=== PATIENT | male | born 1945 | race Caucasian/White ===

== ENCOUNTER 2025-02-10 14:06 | Outpatient (OUT) | payer MEDICARE, SELFPAY ==
--- OUTSIDE RECORDS SUMMARY | 2023-03-14 09:00 | XMS_ITS | Continuity of Care Document ---
Author Organization [facility] Address [address] [place] [address] Phone Care Team Providers Care Stock Order Lister Name Role Phone Randee LOMBARDI Binu Unavailable Unavailable Procedures Procedure Date COVID-19 Antigen Test COVID-19 Antigen Test Admin influenza virus vac FLU VACC PRSV FREE INC ANTIG Advance Directives Directive Yes / No Effective Date File Name No Information Encounters Encounter Description Practice Location Reason(s) For Visit Diagnoses Date Provider Providers Copied on Encounter [facility], [address], [place], [id number], [place] tel:[phone] COVID [facility] Rapid COVID (chief complaint) Encounter for screening for COVID-19 Randee MICHELLE Binu. [address], [place], [id number], [place]. tel:[phone] [facility], [address] [place] [address], [id number], tel:[phone] [facility] No Information Randee Binu. [address], [place], [id number], [place]. tel:[phone] Family History Family Member Type Diagnosis Age At Onset No Information Immunizations Vaccine Date Status Comments Flu (High Dose) administered Note: vis gi concepcion ; Source: New Immunization Record Payers Payer name Insurance type Covered constitution party ID Authoriza tion(s) Medicare PPS MB [id number] Social History Type Description Quantity Date Captured Comments Alcohol Use Details Unknown Caffeine Use Details Unknown Tobacco Use Status No Information Smoking Status No Information Sex Male Sexual Orientation Straight or heterosexual Gender Identity Male Chief Complaint And Reason For Visit From encounter dated '03/14/2023 13:00'. Rapid COVID (chief complaint). Description: Patient presents for rapid COVID antigen test. Denies any other concerns.//Kayden PINEDA. Reason For Referral Reason For Referral No Information Plan Of Treatment Date Type Action Status Goal Tdap Vaccine. Due on 2022 due Goal Hepatitis C screening. Due o n due Goal Depression screening. Due on due Goal Influenza vaccine. Due on No due Goal Zoster vaccine (). Due on due Goal PRAPARE ASSESSMENT. Due on N due Goal Tdap. Due on due Goal Unhealthy drug use screening . Due on due History Of Present Illness Encounter Date Complaint History Of Prese nt Illness Rapid COVID Patient presents for rapid COVID antigen test. Denies any other concerns.//Kayden PINEDA. Functional Status Date Functional Assessmen t No Information Instructions Date Instruction Additional Infor mation No Information Assessments Type Assessment Date assessment Encounter for screening for COVI D- Patient Care Teams Name Effective Dates (start - stop) Status Members No Information
--- OUTSIDE RECORDS SUMMARY | 2025-01-27 10:06 | XMS_ITS | Encounter Summary ---
Author Organization [facility] Address [address] [place] [id number] Care Team Providers Care Coat Agent Name Role Phone Binu Gallegos MD Primary Care Provider + Nicole Cano APRN.NATURE PHOTOGRAPHER Unavailable Source Comments In the event this information is protected by the Federal Confidentiality of Alcohol and Drug AbusePatient Records regulations: The Federal rules restrict any use of the information to criminally investigate or prosecute any alcohol or drug abuse patient.[facility] Reason for Referral * MRI/CT (Routine) - Closed Specialty Diagnoses / Procedures Referred By Contac t Referred To Contact CT IMAGING Diagnoses Localized enlarged lymph nodes Procedures CT ABD/PEL W IVCON CT ABD & PELVIS W/CONTRAST Nicole Cano APRN.NATURE PHOTOGRAPHER [address] [place] [address] [place] [address] Phone: tel: fax: [place] [phone] Referral ID Status Reason Start Date Expiration Date V isits Requested Visits Authorized [id number] Closed Auto-Generate d Referral 01/03/2025 02/02/2026 1 1 * MRI/CT (Routine) - Closed Specialty Diagnoses / Procedures Referred By Contac t Referred To Contact CT IMAGING Diagnoses Localized enlarged lymph nodes Procedures CT CHEST W IVCON DIAGNOSTIC COMPUTED TOMOGRAPHY THORAX W/CONTRAST Nicole Cano, RUDY.THANIA [address] [place] [address] Phone: tel: fax: [place] [phone] Referral ID Status Reason Start Date Expiration Date V isits Requested Visits Authorized [id number] Closed Auto-Generate d Referral 01/03/2025 02/02/2026 1 1 Reason for Visit * Reason Comments Radiology CT * MRI/CT (Routine) - Closed Specialty Diagnoses / Procedures Referred By Contac t Referred To Contact CT IMAGING Diagnoses Localized enlarged lymph nodes Procedures CT CHEST W IVCON DIAGNOSTIC COMPUTED TOMOGRAPHY THORAX W/CONTRAST Nicole Cano, RUDY.NATURE PHOTOGRAPHER [address] [place] [address] Phone: tel: fax: [place] [phone] Referral ID Status Reason Start Date Expiration Date V isits Requested Visits Authorized [id number] Closed Auto-Generate d Referral 01/03/2025 02/02/2026 1 1 Encounter Details Date Type Department Care Team (Latest Contact Info) Description 01/27/2025 10:06 AM EDT - 01/27/2025 11:59 PM EDT Hospital Encounter Radiology Pet CT [address] [place] [address] Localized enlarged lymph nodes [R59.0] Discharge Disposition: Home Social History Tobacco Use Types Packs/Day Years Used Date Smoking Tobacco: Former Cigarettes 0 11/09/1974 - 11/09/1982 Passive Smoke Exposure: Past Smokeless Tobacco: Never Alcohol Use Standard Drinks/Week Comments Not Currently 0 (1 standard drink = 0.6 oz pur e alcohol) Twice a year; maybe one beer PHQ-2 Answer Date Recorded PHQ-2 score 0 06/15/2024 Area Deprivation Index Answer Date Randy rded National Score (1-100), lower number is lower ri 83 11/14/2022 State Score (1-10), lower number is lower risk 7 11/14/2022 Data from: https://www.neighborhoodatlas.[facility].edu/. Last address used for calculation [address] 11/14/2022 Sex and Gender Information Value Date Recorded Sex Assigned at Not on file Legal Sex Male 10:12 AM EST Gender Identity Not on file Sexual Orientation Not on file documented as of this encounter Functional Status * Are you deaf or do you have serious difficulty hearing? Answer Date of Assessment Author No 05/11/2014 10:07 AM Ra christen Cloud * Are you blind or do you have serious difficulty seeing, even when wearing glasses? Answer Date of Assessment Author No 05/11/2014 10:07 AM Ra christen Cloud * Do you have serious difficulty walking or climbing stairs? Answer Date of Assessment Author No 05/11/2014 10:07 AM Ra christen Cloud * Do you have difficulty dressing or bathing? Answer Date of Assessment Author No 05/11/2014 10:07 AM Ra christen Cloud * Because of a physical, mental, or emotional condition, do you have difficulty doing errands alone such as visiting a doctor's office or shopping? Answer Date of Assessment Author No 05/11/2014 10:07 AM Ra christen Cloud documented as of this encounter Mental Status * Because of a physical, mental, or emotional condition, do you have serious difficulty concentrating, remembering, or making decisions? Answer Entry Date Author No 05/11/2014 10:07 AM Ra christen Cloud documented in this encounter Medications at Time of Discharge potassium chloride ER (KLOR-CON) 20 mEq tablet Take 1 tablet by mouth once daily. 3 tablet 01/27/2025 multivit-min/ferr ous fumarate (MULTI VITAMIN ORAL) Take by mouth. cholecalciferol, vitamin D3, (VITAMIN D3 ORAL) Take by mouth. loperamide HCl (ANTI-DIARRHEA ORAL) Take by mouth. acetaminophen (TYLENOL) 325 mg tablet Take 2 tablets by mouth every 6 hours as needed for pain. 04/18/2021 diphenoxylate-atr opine (LOMOTIL) 2.5-0.025 mg per tabletIndications :Malignant neoplasm of anus (HCC) Take 1-2 tablets by mouth every 4 hours as needed for diarrhea 50 tablet 1 04/02/2021 aspirin 325 mg tablet Take 325 mg by mouth every 6 hours as needed. polyethylene glycol 3350 (MIRALAX, GLYCOLAX) 17 gram/dose powder Take by mouth as needed. simvastatin (ZOCOR) 10 mg tablet Take 10 mg by mouth daily at bedtime. documented as of this encounter Progress Notes * Altagracia Mark RN - 01/27/2025 10:15 AM EDT Radiology Service Progress Note DATE OF SERVICE: January 27, 2025 TIME: 10:18 AM PATIENT WEIGHT: 138LBS PATIENT IDENTITY VERIFICATION COMPLETED USING TWO (2) STANDARD IDENTIFIERS: Name and Date of confirmed by patient verbally. FALL SCREENING: Has the patient had 2 falls in the last year or 1 fall with injury or currently using an Ambulatory Assistive Device (Walker, Cane, Wheelchair, Crutches, etc.)? No PATIENT GENDER DATA: Assigned male at ALLERGIES: Reviewed and unchanged CONTRAST ALLERGY: No EXAM: CT -CONTRAST INDUCED NEPHROPATHY RISK FACTORS: Patient age > 60 years CREATININE: Creatinine Date Value Ref Range Status 07/08/2024 0.85 0.73 - 1.22 mg/dL Final 05/31/2024 0.85 0.73 - 1.22 mg/dL Final 01/12/2024 0.97 0.73 - 1.22 mg/dL Final Estimated Glomerular Filtration Rate Date Value Ref Range Status 07/08/2024 88 >=60 mL/min/1.73m Final Comment: Estimated Glomerular Filtration Rate (eGFR) is calculated using the 2020 CKD-EPI creatinine equation. This equation utilizes serum creatinine, sex, and age as parameters. The creatinine assay has traceable calibration to isotope dilution- mass spectrometry. Refer to KDIGO guidelines for clinical interpretation. In patients with unstable renal function, e.g. those with acute kidney injury, the eGFRmay not accurately reflect actual GFR. eGFR- Date Value Ref Range Status 05/09/2021 >60 Final P.O.C.T. RESULTS: Outside Creatinine: 1.29 mg/dl, Calculated GFR 56 ml/min, Date 01/21/25 TREATMENT: No Hydration needed. IV SITE: Ambulatory: A peripheral IV was started in the Left forearm with a Angio cath: 20 gauge. IV SITE APPEARANCE: Clean,Dry and Intact SIGNATURE: Altagracia Mark RN PATIENT NAME: Jean Pierre Verma JR DATE: January 27, 2025 TIME: 10:18 AM * Prachi Sainz RT(R) - 01/27/2025 10:15 AM EDT Radiology Service Progress Note PATIENT NAME: Jean Pierre Verma JR DATE OF SERVICE: January 27, 2025 TIME: 10:39 AM PATIENT IDENTITY VERIFICATION COMPLETED USING TWO (2) IDENTIFIERS: Name and Date of confirmedby patient verbally. FALL SCREENING: Has the patient had 2 falls in the last year or 1 fall with injury or currently using an Ambulatory Assistive Device (Walker, Cane, Wheelchair, Crutches, etc.)? No PATIENT GENDER DATA: Assigned male at PATIENT RELEVANT IMPLANT DATA REVIEWED: Not Applicable PATIENT PRESENTS WITH AN IMPLANTABLE OR ATTACHED DIGITAL HARDWARE DESIGN ENGINEER: No RADIOLOGY DEPARTMENT: CT; Exam(s) Completed: Chest Abdomen Pelvis. Anesthesia: No PERIPHERAL IV DATA: Site assessment: Clean,Dry and Intact, Site disposition Discontinued SIGNED BY: RT Nicky(R) January 27, 2025 10:39 AM documented in this encounter Plan of Treatment Not on file documented as of this encounter Procedures Procedure Name Priority Date/Time Associated Diagnosis Comments CT ABD/PEL W IVCON Routine 01/27/2025 10 :58 AM EDT Localized enlarged lymph nodes CT CHEST W IVCON Routine 01/27/2025 10:5 8 AM EDT Localized enlarged lymph nodes COMPREHENSIVE METABOLIC PANEL Routine 01/27/2025 10:08 AM EDT Localized enlarged lymph nodes CBC + DIFF Routine 01/27/2025 10:08 AM EDT Localized enlarged lymph nodes documented in this encounter Results * CT ABD/PEL W IVCON (01/27/2025 10:58 AM EDT) Anatomical Region Laterality Modality Abdomen Nuclear Medicine , Nuclear Medicine 01/27/2025 10:5 8 AM EDT Impressions 01/27/2025 6:02 PM EDT IMPRESSION: 1. Interval increase in size of multiple retroperitoneal lymph nodes. 2. Stable thickening of the anal canal which may be due to known neoplasm versus underdistention. Transcribe Date/Time: Jan 27 2025 5:52P Dictated by: AYESHA WAGNER MD This examination was interpreted and the report reviewed and electronically signed by: AYESHA WAGNER MD on Jan 27 2025 6:00PM EST Thank you for allowing us to participate in the care of your patient. Should there be any questions regarding this interpretation, please call [phone]. If you are unable to reach us at the number above, please feel free to contact [facility] at [phone]. Narrative 01/27/2025 6:02 PM EDT * * *Final Report* * * DATE OF EXAM: Jan 27 2025 10:58AM [facility] 0530 - CT ABD/PEL W IVCON / PROCEDURE REASON: Localized enlarged lymph nodes * * * * Physician Interpretation * * * * RESULT: EXAMINATION: CT ABDOMEN AND PELVIS WITH IV CONTRAST CLINICAL HISTORY: History of anal cancer. TECHNIQUE: CT of the abdomen and pelvis was performed using standard technique, scanning from just above the dome of the diaphragm to the symphysis pubis. MQ: CTAP_3 Contrast: IV: 100 ml of Omnipaque 350 Oral: 500 ml of Omni 240 10-25ml diluted with water CT Radiation dose: Integrated Dose-length product (DLP) for this visit = 675 mGy*cm. CT Dose Reduction Employed: Automated exposure control (AEC) COMPARISON: CT performed 05/31/2024. PET/CT performed 06/30/2024 RESULT: Liver: No mass. Biliary: There is cholelithiasis without evidence of acute cholecystitis. No biliary ductal dilation is seen. Spleen: No mass. No splenomegaly. Pancreas: No mass or duct dilation. Adrenals: No mass. Kidneys: No mass, calculus or hydronephrosis. GI tract: The stomach is unremarkable. The small bowel is unremarkable without evidence of obstruction or wall thickening. The colon is unremarkable. Mild thickening is noted in the anal canal which may be due to underdistention or known neoplasm. Lymph nodes: Multiple enlarged retroperitoneal nodes are again visualized. These include the following: Retrocaval (3:45) 2.9 x 2.3 cm, previously 2.2 x 1.8 cm. This node encases and compresses the IVC Retrocaval (3:47) 3.1 x 1.3 cm, previously 2.1 x 1.3 cm Left para-aortic (3:56) 3.6 x 1.6 cm, previously 2.8 x 1.6 cm Left para-aortic (3:66) 2.8 x 1.5 cm, previously 2.4 x 1.3 cm Paracaval (3:70) 2.8 x 2.1 cm, previously 2.7 x 1.9 cm Mesentery/Peritoneum: No ascites or mass. Retroperitoneum: No mass. Vasculature: - Abdominal aorta and iliac arteries: Atherosclerotic calcifications without aneurysm. - Celiac and SMA: Patent without stenosis. - Portal venous system (SMV, splenic vein, portal vein and branches): Patent. - Hepatic veins: Patent. Pelvis: No pelvic mass or fluid collection is seen. The urinary bladder is unremarkable. Bones/Soft Tissues: Degenerative changes. Lower thorax: A chest CT performed will be reported separately. Localizer images: No additional findings. Procedure Note Provider, [facility] - 01/27/2025 * * *Final Report* * * DATE OF EXAM: Jan 27 2025 10:58AM [facility] 0530 - CT ABD/PEL W IVCON / PROCEDURE REASON: Localized enlarged lymph nodes * * * * Physician Interpretation * * * * RESULT: EXAMINATION: CT ABDOMEN AND PELVIS WITH IV CONTRAST CLINICAL HISTORY: History of anal cancer. TECHNIQUE: CT of the abdomen and pelvis was performed using standard technique, scanning from just above the dome of the diaphragm to the symphysis pubis. MQ: CTAP_3 Contrast: IV: 100 ml of Omnipaque 350 Oral: 500 ml of Omni 240 10-25ml diluted with water CT Radiation dose: Integrated Dose-length product (DLP) for this visit = 675 mGy*cm. CT Dose Reduction Employed: Automated exposure control (AEC) COMPARISON: CT performed 05/31/2024. PET/CT performed 06/30/2024 RESULT: Liver: No mass. Biliary: There is cholelithiasis without evidence of acute cholecystitis. No biliary ductal dilation is seen. Spleen: No mass. No splenomegaly. Pancreas: No mass or duct dilation. Adrenals: No mass. Kidneys: No mass, calculus or hydronephrosis. GI tract: The stomach is unremarkable. The small bowel is unremarkable without evidence of obstruction or wall thickening. The colon is unremarkable. Mild thickening is noted in the anal canal which may be due to underdistention or known neoplasm. Lymph nodes: Multiple enlarged retroperitoneal nodes are again visualized. These include the following: Retrocaval (3:45) 2.9 x 2.3 cm, previously 2.2 x 1.8 cm. This node encases and compresses the IVC Retrocaval (3:47) 3.1 x 1.3 cm, previously 2.1 x 1.3 cm Left para-aortic (3:56) 3.6 x 1.6 cm, previously 2.8 x 1.6 cm Left para-aortic (3:66) 2.8 x 1.5 cm, previously 2.4 x 1.3 cm Paracaval (3:70) 2.8 x 2.1 cm, previously 2.7 x 1.9 cm Mesentery/Peritoneum: No ascites or mass. Retroperitoneum: No mass. Vasculature: - Abdominal aorta and iliac arteries: Atherosclerotic calcifications without aneurysm. - Celiac and SMA: Patent without stenosis. - Portal venous system (SMV, splenic vein, portal vein and branches): Patent. - Hepatic veins: Patent. Pelvis: No pelvic mass or fluid collection is seen. The urinary bladder is unremarkable. Bones/Soft Tissues: Degenerative changes. Lower thorax: A chest CT performed will be reported separately. Localizer images: No additional findings. IMPRESSION IMPRESSION: 1. Interval increase in size of multiple retroperitoneal lymph nodes. 2. Stable thickening of the anal canal which may be due to known neoplasm versus underdistention. Transcribe Date/Time: Jan 27 2025 5:52P Dictated by: AYESHA WAGNER MD This examination was interpreted and the report reviewed and electronically signed by: AYESHA WAGNER MD on Jan 27 2025 6:00PM EST Thank you for allowing us to participate in the care of your patient. Should there be any questions regarding this interpretation, please call [phone]. If you are unable to reach us at the number above, please feel free to contact [facility] at [phone]. us Nicole Jerome GRANT.NATURE PHOTOGRAPHER CT-PAMA Final Re sult * CT CHEST W IVCON (01/27/2025 10:58 AM EDT) Anatomical Region Laterality Modality Chest Nuclear Medicine , Nuclear Medicine 01/27/2025 10:5 8 AM EDT Impressions 01/27/2025 5:54 PM EDT IMPRESSION: 1. Subtle CT of the chest. Unchanged appearance of bilateral pulmonary nodules. No new nodules are seen. 2. Stable mildly prominent right paratracheal nodes. No new bulky intrathoracic adenopathy. Transcribe Date/Time: Jan 27 2025 5:34P Dictated by: AYESHA WAGNER MD This examination was interpreted and the report reviewed and electronically signed by: AYESHA WAGNER MD on Jan 27 2025 5:52PM EST Thank you for allowing us to participate in the care of your patient. Should there be any questions regarding this interpretation, please call [phone]. If you are unable to reach us at the number above, please feel free to contact [facility] at [phone]. Narrative 01/27/2025 5:54 PM EDT * * *Final Report* * * DATE OF EXAM: Jan 27 2025 10:58AM [facility] 0539 - CT CHEST W IVCON / PROCEDURE REASON: Localized enlarged lymph nodes * * * * Physician Interpretation * * * * RESULT: EXAMINATION: CHEST CT WITH CONTRAST CLINICAL HISTORY: History of anal cancer. Technique: Spiral CT acquisition of the chest from the thoracic inlet to the upper abdomen following IV contrast. MQ: CTCW_6 Contrast: 100 mL Omnipaque [address] Radiation dose: Integrated Dose-length product (DLP) for this visit = 675 mGy*cm CT Dose Reduction Employed: Automated exposure control (AEC) Comparison: CT chest performed 05/31/2024. RESULT: Limitations: None. Lines, tubes, and devices: None. Lung parenchyma and airways: No lobar consolidation is seen. Right basal atelectasis versus subpleural scarring is noted. Bilateral nodular opacities are again noted. These include the following: Right lower lobe (4:118) 4 mm, stable Right lower lobe (4:135) 3 mm, stable Right lower lobe (4:144) 3 mm, stable Left upper lobe (4:28) 3 mm, stable Left lower lobe (4:42) 3 mm, stable No new or enlarging nodules are seen. The central airways are widely patent. Pleural space: No pleural effusion. No pleural thickening. Lower neck, lymph nodes, and mediastinum: Right paratracheal mediastinal nodes are seen measuring up to 1.1 cm, similar to prior exam. No new bulky intrathoracic adenopathy is seen. Heart, pericardium, and thoracic vessels: The thoracic aorta and main pulmonary artery are normal in caliber. The cardiac chambers are normal in size. Coronary artery appears chronic calcification is noted. No pericardial effusion or thickening. Bones and soft tissues: Degenerative changes are seen in the thoracic spine. Superficial soft tissues are unremarkable. Upper abdomen: A dedicated CT of the abdomen and pelvis was performed concurrently and is reported separately. Localizer images: No additional findings. Procedure Note Provider, [facility] - 01/27/2025 * * *Final Report* * * DATE OF EXAM: Jan 27 2025 10:58AM [facility] 0539 - CT CHEST W IVCON / PROCEDURE REASON: Localized enlarged lymph nodes * * * * Physician Interpretation * * * * RESULT: EXAMINATION: CHEST CT WITH CONTRAST CLINICAL HISTORY: History of anal cancer. Technique: Spiral CT acquisition of the chest from the thoracic inlet to the upper abdomen following IV contrast. MQ: CTCW_6 Contrast: 100 mL Omnipaque [address] Radiation dose: Integrated Dose-length product (DLP) for this visit = 675 mGy*cm CT Dose Reduction Employed: Automated exposure control (AEC) Comparison: CT chest performed 05/31/2024. RESULT: Limitations: None. Lines, tubes, and devices: None. Lung parenchyma and airways: No lobar consolidation is seen. Right basal atelectasis versus subpleural scarring is noted. Bilateral nodular opacities are again noted. These include the following: Right lower lobe (4:118) 4 mm, stable Right lower lobe (4:135) 3 mm, stable Right lower lobe (4:144) 3 mm, stable Left upper lobe (4:28) 3 mm, stable Left lower lobe (4:42) 3 mm, stable No new or enlarging nodules are seen. The central airways are widely patent. Pleural space: No pleural effusion. No pleural thickening. Lower neck, lymph nodes, and mediastinum: Right paratracheal mediastinal nodes are seen measuring up to 1.1 cm, similar to prior exam. No new bulky intrathoracic adenopathy is seen. Heart, pericardium, and thoracic vessels: The thoracic aorta and main pulmonary artery are normal in caliber. The cardiac chambers are normal in size. Coronary artery appears chronic calcification is noted. No pericardial effusion or thickening. Bones and soft tissues: Degenerative changes are seen in the thoracic spine. Superficial soft tissues are unremarkable. Upper abdomen: A dedicated CT of the abdomen and pelvis was performed concurrently and is reported separately. Localizer images: No additional findings. IMPRESSION IMPRESSION: 1. Subtle CT of the chest. Unchanged appearance of bilateral pulmonary nodules. No new nodules are seen. 2. Stable mildly prominent right paratracheal nodes. No new bulky intrathoracic adenopathy. Transcribe Date/Time: Jan 27 2025 5:34P Dictated by: AYESHA WAGNER MD This examination was interpreted and the report reviewed and electronically signed by: AYESHA WAGNER MD on Jan 27 2025 5:52PM EST Thank you for allowing us to participate in the care of your patient. Should there be any questions regarding this interpretation, please call [phone]. If you are unable to reach us at the number above, please feel free to contact [facility] at [phone]. us Nicole Cano LOCATOR.NATURE PHOTOGRAPHER CT-PAMA Final Re sult * (ABNORMAL) COMPREHENSIVE METABOLIC PANEL (01/27/2025 10:08 AM EDT) Protein, Total 7.2 6.3 - 8.0 g/dL 01/27/2025 11:42 AM EDT [facility] Albumin 4.6 3.9 - 4.9 g/dL 01/27/2025 11:42 AM [facility] Calcium, Total 9.9 8.5 - 10.2 mg/dL 01/27/2025 11:42 AM [facility] Bilirubin, Total 0.3 0.2 - 1.3 mg/dL 01/27/2025 11:42 AM [facility] Alkaline Phosphatase 105 38 - 113 U/L 01/27/2025 11:42 AM [facility] AST 20 14 - 40 U/L 01/27/2025 11:42 AM [facility] ALT 13 10 - 54 U/L 01/27/2025 11:42 AM [facility] Glucose 128(H) 74 - 99 mg/dL 01/27/2025 11:42 AM [facility] Comment: The [place] [employer] (ADA) provides guidance for cutoff values for fasting glucose and random glucose. The ADA defines fasting as no caloric intake for at least 8 hours. Fasting plasma glucose results between 100 to 125 mg/dL indicate increased risk for diabetes (prediabetes). Fasting plasma glucose results greater than or equal to 126 mg/dL meet the criteria for diagnosis of diabetes. In the absence of unequivocal hyperglycemia, results should be confirmed by repeat testing. In a patient with classic symptoms of hyperglycemia or hyperglycemic crisis, random plasma glucose results greater than or equal to 200 mg/dL meet the criteria for diagnosis of diabetes. Reference: Standards of Medical Care in Diabetes 2016, [place] [employer]. Diabetes Care. 2016.39(Suppl 1). BUN 16 9 - 24 mg/dL 01/27/2025 11:42 AM [facility] Creatinine 1.13 0.73 - 1.22 mg/dL 01/27/2025 11:42 AM [facility] Sodium 142 136 - 144 mmol/L 01/27/2025 11:42 AM [facility] Potassium 3.3(L) 3.7 - 5.1 mmol/L 01/27/2025 11:42 AM [facility] Chloride 103 98 - 107 mmol/L 01/27/2025 11:42 AM EDT [facility] CO2 25 22 - 30 mmol/L 01/27/2025 11:42 AM EDT [facility] Anion Gap 14 8 - 15 mmol/L 01/27/2025 11:42 AM EDT [facility] Estimated Glomerular Filtration Rate 66 >=60 mL/min/1. 73m 01/27/2025 11:42 AM EDT [facility] Comment:Estimated Glomerular Filtration Rate (eGFR) is calculated using the 2020 CKD-EPI creatinine equation. This equation utilizes serum creatinine, sex, and age as parameters. The creatinine assay has traceable calibration to isotope dilution- mass spectrometry. Refer to KDIGO guidelines for clinical interpretation. In patients with unstable renal function, e.g. those with acute kidney injury, the eGFR may not accurately reflect actual GFR. Blood BLOOD SPECIMEN / Unknown Venipuncture / Unknown 01/27/2025 10:08 AM EDT 01/27/2025 10:17 AM EDT us Nicole Cano LOCATOR.NATURE PHOTOGRAPHER LABORATORY Final Re sult [facility] [address] [place] [id number] * (ABNORMAL) COMPLETE BLOOD COUNT AND DIFFERENTIAL (01/27/2025 10:08 AM EDT) WBC 3.57(L) 3.70 - 11.00 k/uL 01/27/2025 10:22 AM EDT [facility] RBC 3.56(L) 4.20 - 6.00 m/uL 01/27/2025 10:22 AM EDT [facility] Hemoglobin 10.3(L) 13.0 - 17.0 g/dL 01/27/2025 10:22 AM EDT [facility] Hematocrit 32.3(L) 39.0 - 51.0 % 01/27/2025 10:22 AM EDT [facility] MCV 90.7 80.0 - 100.0 fL 01/27/2025 10:22 AM EDT [facility] MCH 28.9 26.0 - 34.0 pg 01/27/2025 10:22 AM EDT [facility] MCHC 31.9 30.5 - 36.0 g/dL 01/27/2025 10:22 AM EDT [facility] RDW-CV 16.3(H) 11.5 - 15.0 % 01/27/2025 10:22 AM EDT [facility] Platelet Count 127(L) 150 - 400 k/uL 01/27/2025 10:22 AM EDT [facility] MPV 10.0 9.0 - 12.7 fL 01/27/2025 10:22 AM EDT [facility] Neutrophils % 61.0 % 01/27/2025 10:22 AM EDT [facility] Abs Neut 2.18 1.45 - 7.50 k/uL 01/27/2025 10:22 AM EDT [facility] Lymphocytes % 24.1 % 01/27/2025 10:22 AM EDT [facility] Abs Lymph 0.86(L) 1.00 - 4.00 k/uL 01/27/2025 10:22 AM EDT [facility] Monocytes % 9.8 % 01/27/2025 10:22 AM EDT [facility] Abs [place] 0.35 <0.87 k/uL 01/27/2025 10:22 AM EDT [facility] Eosinophils % 3.9 % 01/27/2025 10:22 AM EDT [facility] Abs Eosin 0.14 <0.46 k/uL 01/27/2025 10:22 AM EDT [facility] Basophils % 0.6 % 01/27/2025 10:22 AM EDT [facility] Abs Baso <0.03 <0.11 k/uL 01/27/2025 10:22 AM EDT [facility] Immature Granulocytes % 0.6 % 01/27/2025 10:22 AM EDT [facility] Abs Immature Gran <0.03 <0.10 k/uL 01/27/2025 10:22 AM EDT [facility] NRBC 0.0 /100 WBC 01/27/2025 10:22 AM EDT [facility] Absolute nRBC <0.01 <0.01 k/uL 01/27/2025 10:22 AM EDT [facility] Diff Type Auto 01/27/2025 10:22 AM EDT [facility] Blood BLOOD SPECIMEN / Unknown Venipuncture / Unknown 01/27/2025 10:08 AM EDT 01/27/2025 10:17 AM EDT us Nicole Cano LOCATOR.[employer] LABORATORY Final Re sult [facility] [address] [place] [address] documented in this encounter Visit Diagnoses Diagnosis Localized enlarged lymph nodes Enlargement of lymph nodes documented in this encounter Care Teams 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
--- OUTSIDE RECORDS SUMMARY | 2025-02-01 09:00 | XMS_ITS | Encounter Summary ---
Author Organization [facility] Address [address] [place] [id number] Care Team Providers Care Civil Service Clerk Name Role Phone Binu Gallegos MD Primary Care Provider + Nicole Cano APRN.ACOUSTICS TEACHER Unavailable [phone] Source Comments In the event this information is protected by the Federal Confidentiality of Alcohol and Drug AbusePatient Records regulations: The Federal rules restrict any use of the information to criminally investigate or prosecute any alcohol or drug abuse patient.[facility] Reason for Referral * Outpatient Procedure (Routine) - New Request Specialty Diagnoses / Procedures Referred By Contac t Referred To Contact [facility] [place] Diagnoses Heart failure, unspecified HF chronicity, unspecified heart failure type (HCC) Edema of both legs Procedures ECHO ECHO TTHRC R-T 2D W/WOM-MODE COMPL SPEC&COLR D Jose Luis Adams MD [address] [place] [address] [place] [address] Phone: tel: fax: Heart and Vascular [address] [address] Referral ID Status Reason Start Date Expiration Date Visits Requested Visits Authorized [id number] New Request Auto-Generat ed Referral 02/01/2025 02/01/2026 1 1 Reason for Visit * Reason Comments Lymphadenopathy Transition Of Care Encounter Details Date Type Department Care Team (Latest Contact Info) Description 02/01/2025 9:00 AM EDT Visit (SP) Office Hematology/Oncology [address] [place] [address] [place] [address] Jose Luis Adams MD [address] [place] [address] [place] [address] History of lymphoma (Primary Dx); Lymphadenopathy; Heart failure, unspecified HF chronicity, unspecified heart failure type (HCC); Edema of both legs; Cancer of anal canal (HCC); Iron deficiency anemia due to chronic blood loss; Diffuse large B-cell lymphoma, unspecified body region (HCC); Anemia, unspecified type; Personal history of malignant neoplasm of rectum, rectosigmoid junction, and anus; Shortness of breath; Hypokalemia; 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 Last address used for calculation [address] [facility] 11/14/2022 Sex and Gender Information Value Date Recorded Sex Assigned at Not on file Legal Sex Male 10:12 AM EST Gender Identity Not on file Sexual Orientation Not on file documented as of this encounter Last Filed Vital Signs Vital Sign Reading Time Taken Comments Blood Pressure 124/80 02/01/2025 8:53 AM EDT Pulse 99 02/01/2025 8:53 AM EDT Temperature 36.6 C (97.9 F) 02/01/2025 8:53 AM EDT Respiratory Rate 16 02/01/2025 8:53 AM EDT Oxygen Saturation 100% 02/01/2025 8:53 AM EDT Inhaled Oxygen Concentration - - Weight 60.8 kg (134 lb 0.6 oz) 02/01/2025 8:53 A M EDT Height - - Body Mass Index 20.99 08/05/2024 10:05 AM EDT documented in this encounter Functional Status * Are you [...] Ra christen Cloud documented in this encounter Patient Instructions * Patient Instructions* Jose Luis Adams MD - 02/01/2025 9:43 AM EDT [place] [facility] Medrol-dose amarjit. RTC with me 1 week () labs same day. We discussed your history of lymphoma and current symptoms: - Your recent CT and PET scans show progressive retroperitoneal lymphadenopathy, with one lymph node compressing the inferior vena cava, which may be contributing to your leg swelling. - You reported swelling in your legs for the past six months, worse on the right side, and back pain that is constant and severe. You also mentioned shortness of breath with activity and weight loss of approximately 13-14 pounds since June 2024. - Your blood counts remain stable but show mild anemia, which may also contribute to your symptoms. We discussed your treatment plan: - I will prescribe a Medrol Dosepak (a short course of steroids) to see if it alleviates your back pain. This may help us determine if your symptoms are related to lymphoma. The prescription will be sent to your preferred pharmacy. - I recommend an echocardiogram to evaluate your heart function, as your shortness of breath and leg swelling could be related to heart issues. This will be scheduled at [facility], and they will contact you with the appointment details. - If the Medrol Dosepak improves your symptoms, we will reassess and determine the next steps. If not, we may need to pursue a biopsy of one of the lymph nodes to confirm a diagnosis. A pulmonologistmay be able to perform a bronchoscopy to access a lymph node in your chest. We discussed your current medications and care: - You are currently taking potassium supplements due to low potassium levels. Please continue as directed by Dr. Gallegos, and follow up with him to monitor your levels. - You mentioned wearing compression socks occasionally for leg swelling. I recommend wearing them more consistently, as they may help reduce the swelling. Follow-up plan: - Please take the Medrol Dosepak as prescribed and monitor your symptoms, particularly your back pain and leg swelling. - I would like to see you in one week to evaluate your response to the steroids and discuss the results of your echocardiogram if it has been completed. My office will work with you to schedule this follow-up visit. - If your symptoms worsen or you experience new concerning symptoms, such as significant shortness of breath while lying flat, chest pain, or worsening swelling, please contact our office or seek immediate medical attention. We will continue to monitor your condition closely and adjust the plan as needed. documented in this encounter Progress Notes * Jose Luis Adams MD - 02/01/2025 9:00 AM EDT Images from the original note were not included. NAME: Jean Pierre Verma NO.: [id number] DATE OF SERVICE: February 01, 2025 (Bryan) Referring Provider: DIPTI Additional Clinicians involved in Jean Pierre Verma JR's care: Dr. Binu Gallegos, Dr. Abhi Eugene, Dr. Ozuna, Dr. Ndiaye, Dr. Rendon, Dr. 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 The patient was diagnosed with stage IIIb DLBCL in 11/2004 and achieved complete response after 8 cycles of R-CHOP, completed in 04/2005. He has since been followed for intermittent lymphadenopathy with suspected benign follicular hyperplasia and chronic uptake on PET scans. 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 He has been disease-free since then. In 05/2024, CT scan showed progressive retroperitoneal lymphadenopathy, and PET scan in 06/2024 showed FDG uptake in multiple lymph node groups suspicious for recurrent lymphoma. Excisional biopsy of aleft axillary lymph node on 07/16/2024 showed benign follicular hyperplasia with no evidence of malignancy. Today, the patient reports bilateral lower extremity edema for approximately 6 months, worse on theright side, which fluctuates throughout the day and improves overnight. He has been using compression stockings intermittently and was recently advised by his PCP to use them more consistently. He was recently prescribed a diuretic by his PCP and is taking potassium supplements after a low potassium level was noted last week. He denies orthopnea. He also reports constant, severe back pain that disrupts his sleep and requires frequent use of a cane. He was evaluated by his PCP, Dr. Gallegos, who attributed the pain to arthritis, but the patient feels the pain is too severe to be explained by arthritis alone. He also reports exertional dyspnea with walking, requiring him to stop and rest. Since 06/2024, he has unintentionally lost 13-14 lbs and notes a decreased appetite. He denies nightsweats. I'm concerned that we are indeed looking at low grade lymphoma, but I am also concerned that getting tissue to confirm may be difficult. Will see if his edema is due to heart failure vs. Compression of the IVC. Trial of a medrol dose-amarjit to see if this alleviates back pain and re-evaluation next week for further work-up / recs. SUMMARIZED PLAN OF CARE: [facility] Medrol-dose amarjit. RTC with me 1 week () labs same day. AI Assisted A/P: 1. History of lymphoma (Z85.72) 2. Diffuse large B-cell lymphoma, unspecified body region (HCC) (C83.30) 3. Lymphadenopathy (R59.1) History of stage 3B DLBCL diagnosed in November 2004, treated with 8 cycles of R- CHOP, completed April 2005, with complete response. Since October 2019, has been followed for intermittent lymphadenopathy with suspected benign follicular hyperplasia. Imaging in May and June 2024 showed progressive retroperitoneal lymphadenopathy with FDG-avid nodes suspicious for recurrent lymphoma. Excisional biopsy of left axillary lymph node on 07/16/2024 showed benign follicular hyperplasia, no malignancy. Recent CT shows further lymphadenopathy, with one node compressing the IVC. - Discussed diagnostic challenges and rationale for tissue diagnosis prior to systemic therapy. - Discussed risks of empiric steroids potentially obscuring future biopsy results. - Will consult radiology and pulmonology to assess feasibility of tissue biopsy from thoracic lymphnode via bronchoscopy. - Start Medrol Dosepak (methylprednisolone) for 5 days as a diagnostic and symptomatic trial. - Follow-up next week to reassess symptoms and review any new diagnostic information. 4. Heart failure, unspecified HF chronicity, unspecified heart failure type (HCC) (I50.9) 5. Edema of both legs (R60.0) 6. Shortness of breath (R06.02) Chronic bilateral lower extremity edema (worse on right) and exertional dyspnea. Differential includes IVC compression from retroperitoneal lymphadenopathy, prior pelvic radiation, anemia, and possible heart failure. - Order echocardiogram to assess cardiac function. - Continue compression stockings as previously advised. - Follow-up next week to review echocardiogram results and reassess symptoms. 7. Cancer of anal canal (HCC) (C21.1) 8. Iron deficiency anemia due to chronic blood loss (D50.0) 9. Anemia, unspecified type (D64.9) 10. Personal history of malignant neoplasm of rectum, rectosigmoid junction, and anus (Z85.048) 11. Hypokalemia (E87.6) 12. [facility] (current) use of systemic steroids (Z79.52) 13. Encounter for other preprocedural examination (Z01.818) CASE HISTORY: Reverse Chronological Order 01/27/2025 - CT CAP: Subtle CT of the chest. Unchanged appearance of bilateral pulmonary nodules. No new nodules are seen Stable mildly prominent right paratracheal nodes. No new bulky intrathoracic adenopathy Interval increase in size of multiple retroperitoneal lymph nodes Stable thickening of the anal canal which may be due to known neoplasm versus underdistention Retrocaval (3:45) 2.9 x 2.3 cm, previously [...] 2.1 cm, previously 2.7 x 1.9 cm 07/16/2024 Lymph node, left axillary, excisional biopsy: - Florid follicular hyperplasia. - Negative for lymphoproliferative disorder. Comment: Overall, the morphologic and immunophenotypic findings described below are consistent witha reactive lymph node demonstrating florid follicular hyperplasia. There is no evidence the patient's previously diagnosed diffuse large B-cell lymphoma in this biopsy. 06/30/2024 PET scan HEAD/NECK: * Metabolically right level 4/supraclavicular nodes, new since prior PET/CT. CHEST: * Metabolically active mediastinal and left axillary nodes, new since prior PET/CT. ABDOMEN/PELVIS: * Metabolically retroperitoneal and bilateral common iliac nodes, increased in metabolic activity/size since prior PET/CT. * No metabolically active anal recurrence. MUSCULOSKELETAL: * No metabolically active disease. 05/31/2024 CT neck New medialization of the right true and false vocal cords raising the question of right vocal cord paralysis. No pathologic enhancement. No evidence of neck mass or lymphadenopathy on the study. 05/31/2024 CT chest 1. Stable CT of the chest. Stable appearance of bilateral pulmonary nodules. No new or enlarging nodules are noted. 2. No evidence of intrathoracic adenopathy. 05/31/2024 CT abdomen/pelvis 1. Continued interval increase in size of multiple retroperitoneal lymph nodes. 2. Stable thickening of the anal canal which may be on the basis of known neoplasm versus underdistention. 3. No findings to suggest new abdominal or pelvic metastatic disease. 06/03/2023 CT chest 1. Stable CT of the chest. Unchanged appearance of multiple bilateral pulmonary nodules measuring up to 4 mm. No new or enlarging nodules are visualized. 2. No evidence of intrathoracic lymphadenopathy. 06/03/2023 CT abdomen/pelvis 1. Slight interval increase in size of retroperitoneal lymph nodes. 2. Mild thickening of the right anal canal, nonspecific. Findings may be on the basis of known neoplasm, under distention, or redundant mucosa. 05/09/2022 CT chest 1. Stable appearance to several bilateral subcentimeter pulmonary nodules, as above. 2. No substantial intrathoracic adenopathy is identified 05/09/2022 CT abdomen/pelvis IMPRESSION: 1. Retroperitoneal adenopathy, several areas appear stable, several appear slightly more conspicuous in size. 2. Incidental note is again made of cholelithiasis. 11/07/2021 CT chest IMPRESSION: 1. Interval resolution of a previously described right middle lobe nodular opacity. 2. Residual subcentimeter nodular opacities measuring up to 5 mm, stable since 05/09/21 11/07/2021 CT abdomen/pelvis IMPRESSION: 1. Mild abdominal/pelvic lymphadenopathy, stable since 05/09/21. 2. No evidence of new intra-abdominal/pelvic abnormalities. 3. Cholelithiasis. 4. Sigmoid colon and left colon diverticulosis without evidence of diverticulitis. 05/09/2021 CT chest 1. Newly apparent 2-3 mm groundglass opacity within the right middle lobe, likely infectious/inflammatory in nature. Correlation with continued follow-up examinations is recommended. 2. Additional bilateral subcentimeter pulmonary nodules elsewhere, stable. 3. A previously described mildly enlarged left supraclavicular lymph node is no longer appreciated. 4. Prominent soft tissue density within the retroareolar regions of the breasts bilaterally, compatible with progression of gynecomastia. 05/09/2021 CT abdomen/pelvis 1. There has been progression of retroperitoneal adenopathy, as detailed above. 2. Findings suggest right-sided nonobstructive nephrolithiasis. 11/07/2020 CT Abdomen and Pelvis IMPRESSION: 1. Mild pelvic lymphadenopathy, stable since 08/01/2020. 2. No evidence of new intra-abdominal/pelvic abnormalities. 3. Cholelithiasis. 4. Sigmoid colon and left colon diverticulosis without evidence of diverticulitis. 5. Small hiatal hernia. 08/01/2020 PET/CT IMPRESSION: 1. NECK: No FDG avid neoplastic process. No mass, adenopathy, or fluid collection. 2. CHEST: No FDG avid neoplastic process. No mass, adenopathy, or fluid collection. 3. ABDOMEN/PELVIS: Persistent uptake in the left pectoral/inguinal region; slightly changed in configuration and appearance as described, highly suspicious for for persistent malignancy in this region. Interval development of bilateral lower para-aortic and left common iliac lymph nodes, compatible with malignant lymph nodes. 4. EXTREMITIES/SKELETON: No FDG avid osseous process. No destructive/traumatic bony abnormality. 03/27/2020 MRI Pelvis IMPRESSION: Decreased bulk and size of a 4.8 cm anorectal mass. Decreased invasion into the prostate gland. Decreased size of mesorectal and extramesorectal lymph nodes. 10/06/2019 Right perianal/rectal mass, excision ([facility]) Invasive moderately to poorly differentiated squamous cell carcinoma, with lymphovascular invasion and present at the margin. Tumor cells strongly positive for p16 HPI: Updated Visit, February 01, 2025: Niroe Villa is with him. 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 He is accompanied by a family member who provides additional history. The patient was diagnosed with stage IIIb DLBCL in 11/2004 and achieved complete response after 8 cycles of R-CHOP, completed in 04/2005. He has since been followed for intermittent lymphadenopathy with suspected benign follicular hyperplasia and chronic uptake on PET scans. 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 He has been disease-free since then. In 05/2024, CT scan showed progressive retroperitoneal lymphadenopathy, and PET scan in 06/2024 showed FDG uptake in multiple lymph node groups suspicious for recurrent lymphoma. Excisional biopsy of aleft axillary lymph node on 07/16/2024 showed benign follicular hyperplasia with no evidence of malignancy. Today, the patient reports bilateral lower extremity edema for approximately 6 months, worse on theright side, which fluctuates throughout the day and improves overnight. He has been using compression stockings intermittently and was recently advised by his PCP to use them more consistently. He was recently prescribed a diuretic by his PCP and is taking potassium supplements after a low potassium level was noted last week. He denies orthopnea. He also reports constant, severe back pain that disrupts his sleep and requires frequent use of a cane. He was evaluated by his PCP, Dr. Gallegos, who attributed the pain to arthritis, but the patient feels the pain is too severe to be explained by arthritis alone. He also reports exertional dyspnea with walking, requiring him to stop and rest. Since 06/2024, he has unintentionally lost 13-14 lbs and notes a decreased appetite. He denies nightsweats. - (07/16/2024) Excisional biopsy, left axillary lymph node: Benign follicular hyperplasia; no evidence of malignancy. - (June 2024) PET-CT: FDG-avid uptake in multiple lymph node groups suspicious for recurrent lymphoma. - (May 2024) CT Abdomen/Pelvis: Progressive retroperitoneal lymphadenopathy. - (November 2019) Definitive chemoradiation for anal canal squamous cell carcinoma completed: Disease-free since completion. - (April 2005) R-CHOP ??8 for diffuse large B-cell lymphoma: Complete response. - CT Abdomen/Pelvis (most recent, date not stated): Abdominal lymph nodes larger; one node compressing the inferior vena cava. - CBC: Chronic cytopenias (WBC, RBC, platelets) stable; hemoglobin lower than prior levels since 2020. Updated Visit, August 05, 2024 (BRM): Since the patient's last visit here he underwent excisional biopsy of a left axillary lymph node per Dr. Ro on 07/16/2024. Pathology revealed benign follicular hyperplasia, and no evidence of lymphoma or other malignancy. The patient tolerated the procedure well with no adverse effects. He has had no other medical changes since his last visit here. Currently he feels well with no complaints. Denies any fevers, night sweats, or weight loss. REVIEW OF SYSTEMS Per HPI and otherwise negative by full review of organ systems. Constitutional: (+) weight loss, (+) decreased appetite, (-) diaphoresis Cardiovascular: (+) bilateral lower extremity edema right greater than left Respiratory: (+) exertional dyspnea, (-) orthopnea Musculoskeletal: (+) back pain ____ ECOG PERFORMANCE STATUS: 1 PHYSICAL EXAMINATION: Vitals: BP 124/80 Pulse 99 Temp (Src) 97.9 (Temporal) Resp 16 Wt 134 lb 0.6 oz (60.8kg) SpO2 100% Body surface area is 1.7 meters squared. Exam limited to gross visualization where appropriate. Gen.: This is an age-appropriate patient in no acute distress. Head: Appears atraumatic with no visible lesions. Eyes: Pupils equally round and reactive to light, extraocular muscles are intact. Neck: Supple. Respiratory: Appears to be respiring comfortably. Neurologic: Nonfocal to gross visualization. Alert and oriented ??3. Psychiatric: No evidence of inappropriate anxiety or depression. Skin: Visible areas of skin without rash, lesions, wounds or petechiae. ++ bilateral lower extremity edema R>L ALLERGIES: ALLERGIES No Known Allergies MEDICATIONS: potassium chloride ER (KLOR-CON) 20 mEq tablet Take 1 tablet by mouth once daily. multivit-min/ferrous fumarate (MULTI VITAMIN ORAL) Take by mouth. cholecalciferol, vitamin D3, (VITAMIN D3 ORAL) Take by mouth. loperamide HCl (ANTI-DIARRHEA ORAL) Take by mouth. acetaminophen (TYLENOL) 325 mg tablet Take 2 tablets by mouth every 6 hours as needed for pain. diphenoxylate-atropine (LOMOTIL) 2.5-0.025 mg per tablet Take 1-2 tablets by mouth every 4 hours asneeded for diarrhea aspirin 325 mg tablet Take 325 mg by mouth every 6 hours as needed. polyethylene glycol 3350 (MIRALAX, GLYCOLAX) 17 gram/dose powder Take by mouth as needed. simvastatin (ZOCOR) 10 mg tablet Take 10 mg by mouth daily at bedtime. methylPREDNISolone (MEDROL, AMARJIT,) 4 mg Dose-Pack Take as instructed per package. LABORATORY VALUES: WBC (k/uL) Date Value 01/27/2025 3.57 (L) RBC (m/uL) Date Value 01/27/2025 3.56 (L) Hemoglobin (g/dL) Date Value 01/27/2025 10.3 (L) Hematocrit (%) Date Value 01/27/2025 32.3 (L) MCV (fL) Date Value 01/27/2025 90.7 MCH (pg) Date Value 01/27/2025 28.9 MCHC (g/dL) Date Value 01/27/2025 31.9 RDW-CV (%) Date Value 01/27/2025 16.3 (H) Platelet Count (k/uL) Date Value 01/27/2025 127 (L) MPV (fL) Date Value 01/27/2025 10.0 Glucose (mg/dL) Date Value 01/27/2025 128 (H) BUN (mg/dL) Date Value 01/27/2025 16 Creatinine (mg/dL) Date Value 01/27/2025 1.13 Sodium (mmol/L) Date Value 01/27/2025 142 Potassium (mmol/L) Date Value 01/27/2025 3.3 (L) Chloride (mmol/L) Date Value 01/27/2025 103 CO2 (mmol/L) Date Value 01/27/2025 25 Protein, Total (g/dL) Date Value 01/27/2025 7.2 Albumin (g/dL) Date Value 01/27/2025 4.6 Calcium, Total (mg/dL) Date Value 01/27/2025 9.9 Alkaline Phosphatase (U/L) Date Value 01/27/2025 105 Bilirubin, Total (mg/dL) Date Value 01/27/2025 0.3 AST (U/L) Date Value 01/27/2025 20 ALT (U/L) Date Value 01/27/2025 13 DIAGNOSIS: (Z85.72) History of lymphoma (primary encounter diagnosis) Plan: LACTATE DEHYDROGENASE, COMPLETE BLOOD COUNT AND DIFFERENTIAL, COMPREHENSIVE METABOLIC PANEL, URIC ACID, IRON AND TIBC, FERRITIN, VITAMIN B12, FOLATE, SERUM (R59.1) Lymphadenopathy (I50.9) Heart failure, unspecified HF chronicity, unspecified heart failure type (HCC) Plan: ECHO, perflutren lipid microspheres 1.3 mL in NaCl (PF) 0.9% 10 mL injection (DEFINITY), sodium chloride 0.9 % (flush) 10 mL (BD POSIFLUSH) (R60.0) Edema of both legs Plan: ECHO (C21.1) Cancer of anal canal (HCC) Plan: LACTATE DEHYDROGENASE, COMPLETE BLOOD COUNT AND DIFFERENTIAL, COMPREHENSIVE METABOLIC PANEL, URIC ACID, IRON AND TIBC, FERRITIN, VITAMIN B12, FOLATE, SERUM (D50.0) Iron deficiency anemia due to chronic blood loss Plan: LACTATE DEHYDROGENASE, COMPLETE BLOOD COUNT AND DIFFERENTIAL, COMPREHENSIVE METABOLIC PANEL, URIC ACID, IRON AND TIBC, FERRITIN, VITAMIN B12, FOLATE, SERUM (C83.30) Diffuse large B-cell lymphoma, unspecified body region (HCC) (D64.9) Anemia, unspecified type (Z85.048) Personal history of malignant neoplasm of rectum, rectosigmoid junction, and anus (R06.02) Shortness of breath (E87.6) Hypokalemia (Z79.52) [facility] (current) use of systemic steroids (Z01.818) Encounter for other preprocedural examination PAST MEDICAL HISTORY Diagnosis Date Anal cancer (HCC) radiation tx 12/15 Hypercholesteremia Hypertension NHL (nodular histiocytic lymphoma) (HCC) PAST SURGICAL HISTORY Procedure Laterality Date ANAL BIOPSY 06/2020 COLONOSCOPY HERNIA REPAIR HX x2 SOCIAL HISTORY[1] FAMILY HISTORY Problem Relation Age of Onset Hypertension Mother Asthma Father Anesthesia Problems No Family History I spent a total of 40 minutes on the date of service which included preparing to see the patient, [id number] patient care, completing clinical documentation, obtaining and/or reviewing separately obtained history, performing a medically appropriate examination, counseling and educating the patient/family/caregiver, ordering medications, tests, or procedures, independently interpreting results (not separately reported), communicating results to the patient/family/caregiver, and care coordination (not separately reported). Jose Luis Adams MD, CPE Hematology and Oncology Services Provided at: [place], [place] CC: Binu Gallegos MD [address] [facility] [place] [address] [1] Social History Tobacco Use Smoking status: Former Current packs/day: 0.00 Types: Cigarettes Start date: 11/09/1974 Quit date: 11/09/1982 Years since quittin.2 Passive exposure: Past Smokeless tobacco: Never Vaping Use Vaping status: Never Used Substance Use Topics Alcohol use: Not Currently Comment: Twice a year; maybe one beer Drug use: Never documented in this encounter Plan of Treatment Pending Results Name Type Priority Associated Diagnoses Date /Time LACTATE DEHYDROGENASE Lab Routine History of lymphoma Cancer of anal canal (HCC) Iron deficiency anemia due to chronic blood loss 02/10/2025 1:34 PM EDT URIC ACID Lab Routine History of lymphoma Cancer of anal canal (HCC) Iron deficiency anemia due to chronic blood loss 02/10/2025 1:34 PM EDT IRON AND TIBC Lab Routine History of lymphoma Cancer of anal canal (HCC) Iron deficiency anemia due to chronic blood loss 02/10/2025 1:34 PM EDT FERRITIN Lab Routine History of lymphoma Cancer of anal canal (HCC) Iron deficiency anemia due to chronic blood loss 02/10/2025 1:34 PM EDT VITAMIN B12 Lab Routine History of lymphoma Cancer of anal canal (HCC) Iron deficiency anemia due to chronic blood loss 02/10/2025 1:34 PM EDT FOLATE, SERUM Lab Routine History of lymphoma Cancer of anal canal (HCC) Iron deficiency anemia due to chronic blood loss 02/10/2025 1:34 PM EDT Scheduled Orders Name Type Priority Associated Diagnoses Orde r Schedule ECHO Cardiology Routine Heart failure, unspecified HF chronicity, unspecified heart failure type (HCC) Edema of both legs 1 Occurrences starting 02/01/2025 until 02/01/2026 LACTATE DEHYDROGENASE Lab Routine History of lymphoma Cancer of anal canal (HCC) Iron deficiency anemia due to chronic blood loss Expected: 02/09/2025 (Approximate), Expires: 02/01/2026 URIC ACID Lab Routine History of lymphoma Cancer of anal canal (HCC) Iron deficiency anemia due to chronic blood loss Expected: 02/09/2025 (Approximate), Expires: 05/11/2025 IRON AND TIBC Lab Routine History of lymphoma Cancer of anal canal (HCC) Iron deficiency anemia due to chronic blood loss Expected: 02/09/2025 (Approximate), Expires: 02/01/2026 FERRITIN Lab Routine History of lymphoma Cancer of anal canal (HCC) Iron deficiency anemia due to chronic blood loss Expected: 02/09/2025 (Approximate), Expires: 02/01/2026 VITAMIN B12 Lab Routine History of lymphoma Cancer of anal canal (HCC) Iron deficiency anemia due to chronic blood loss Expected: 02/09/2025 (Approximate), Expires: 02/01/2026 FOLATE, SERUM Lab Routine History of lymphoma Cancer of anal canal (HCC) Iron deficiency anemia due to chronic blood loss Expected: 02/09/2025 (Approximate), Expires: 02/01/2026 documented as of this encounter Visit Diagnoses Diagnosis History of lymphoma- Primary Personal history of other lymphatic and hematopoietic neoplasm Lymphadenopathy Enlargement of lymph nodes Heart failure, unspecified HF chronicity, unspecified heart failure type (HCC) Edema of both legs Edema Cancer of anal canal (HCC) Malignant neoplasm of anal canal 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, unspecified body region (HCC) Anemia, unspecified type Personal history of malignant neoplasm of rectum, rectosigmoid junction, and anus Shortness of breath Hypokalemia 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
--- NOTE | 2025-02-10 10:00 | CA_ITS ---
Patient Name: LEE SANCHEZ MR#: [id number] : 1945 Exam Date: 02/10/2025 Ordering Doctor: DR. VY DAS M.D. ECHOCARDIOGRAM REPORT PROCEDURE: CA ECHO DOPPLER COMPLETE INDICATIONS: Cardiotoxicity, heart failure, edema COMPARISON: None. DESCRIPTION: COMPLETE ECHOCARDIOGRAM Real-time transthoracic echocardiography with 2D, M-mode, spectral and color flow Doppler performed. QUALITY: Technical quality was good. LEFT VENTRICLE: Normal chamber size. Proximal septal hypertrophy (sigmoid septum). LV EF: Global left ventricular systolic function is normal; visually estimated ejection fraction is 55%. Calculated ejection fraction is 57%. No significant wall motion abnormalities. DIASTOLIC: Diastolic function is indeterminate. ATRIAL SEPTUM: Visually appears intact. LEFT ATRIUM: Mild dilatation. RIGHT ATRIUM: Mild dilatation. RIGHT VENTRICLE: Normal chamber size. Normal right ventricular systolic function. TRICUSPID VALVE: Normal mobility and thickness. No stenosis with mild regurgitation. No evidence of pulmonary hypertension. RVSP 27 mmHg MITRAL VALVE: Normal mobility and thickness. No evidence of mitral valve stenosis. Mild mitral annular calcification. Mild mitral regurgitation. AORTIC VALVE: Normal trileaflet appearance. Thickened aortic valve. Mildly diminished mobility. No evidence of aortic valve stenosis. No aortic regurgitation. AORTIC ROOT: Normal diameter and appearance. PULMONIC VALVE: Normal thickness and mobility. No stenosis. No regurgitation. PERICARDIUM: No evidence of pericardial effusion. IVC: Not well visualized. STRAIN: Global peak SL (4CH) -15.4%; (2CH) -14.2%; (APLAX) -16.4%; GLS (average) -15.3%. No prior studies to compare. CONCLUSION: 1. Global left ventricular systolic function is normal; visually estimated ejection fraction is 55% 2. Normal right ventricular size and systolic function 3. Biatrial dilatation 4. Diastolic function is indeterminate 5. Mild tricuspid regurgitation 6. Mild mitral regurgitation 7. Global peak SL (4CH) -15.4%; (2CH) -14.2%; (APLAX) -16.4%; GLS (average) -15.3%. No prior studies to compare. Adult Echocardiography Procedure Report Left Ventricle LVEDD (3.7 - 5.6 cm): 4.11 cm LVESD (2.2 - 4.0 cm): 2.89 cm LVIVS thickness (0.6 - 1.2 cm): 1.47 cm LVPW thickness (0.5 - 1.0 cm): 1.06 cm e': 0.06 m/s E - e': 8.07 LVOT Max Gradient: 2.15 mm[Hg] LVOT Area (cm2): 0.73 m/s Peak Velocity (LVOT): 0.73 m/s Mean Velocity (LVOT): 0.52 m/s LVOT Diameter 2.26 cm Left Atrium LA Volume Index (2D A2C): 22.45 ml/m2 Left Atrium Systolic Dimension: 3.52 cm Mitral Valve MV E to A Ratio: 0.53 Mitral Valve A-Wave Peak Velocity: 0.88 m/s Mitral Valve E-Wave Peak Velocity: 0.46 m/s Right Ventricle Aorta AO Root Diam: 3.31 cm Aortic Valve AoV Area (Peak Braxton): 2.31 cm2, 2.31 cm2 AoV Area (VTI): 1.84 cm2, 1.84 cm2 Peak Velocity(Antegrade Flow): 1.27 m/s, 1.05 m/s Peak Gradient(Antegrade Flow): 6.48 mm[Hg], 4.42 mm[Hg] Mean Velocity(Antegrade Flow): 0.94 m/s, 0.56 m/s Mean Gradient(Antegrade Flow): 3.92 mm[Hg], 1.66 mm[Hg] Velocity Time Integral: 28.02 cm, 16.02 cm Tricuspid Valve Peak Velocity (Regurgitant Flow): 2.38 m/s, 2.43 m/s Pulmonic Valve Peak Gradient: 4.18 mm[Hg], 3.61 mm[Hg] Right Atrium Right Atrium Systolic Pressure: 60.22 ml, 60.22 ml Dictated by: Ron Arredondo M.D. on 02/10/2025 at 16:09 Approved by: Ron Arredondo M.D. on 02/10/2025 at 16:15
--- OUTSIDE RECORDS SUMMARY | 2025-02-10 13:40 | XMS_ITS | Encounter Summary ---
Author Organization [facility] Address [address] [place] [address] Care Team Providers Care Tax Economist Name Role Phone Binu Gallegos MD Primary Care Provider + Nicole Cano APRN.LAST IRONER Unavailable [phone] Source Comments In the event this information is protected by the Federal Confidentiality of Alcohol and Drug AbusePatient Records regulations: The Federal rules restrict any use of the information to criminally investigate or prosecute any alcohol or drug abuse patient.[facility] Encounter Details Date Type Department Care Team ([facility] st Contact Info) Description 02/10/2025 1:40 PM EDT Visit (SP) Office Hematology/Oncology [address] [place] [address] [place] [address] Jose Luis Adams MD [address] [place] [address] [place] [address] Arrived Social History Tobacco Use Types Packs/Day Years [...] is lower risk 7 11/14/2022 Data from: https://www.neighborhoodatlas.medicine.[facility]/. Last address used for calculation [address] [facility] 11/14/2022 Sex and Gender Information Value Date Recorded Sex Assigned at Not on file Legal Sex Male 10:12 AM EST Gender Identity Not on file Sexual Orientation Not on file documented as of this encounter Last Filed Vital Signs Vital Sign Reading Time Taken Comments Blood Pressure 123/79 02/10/2025 1:44 PM EDT Pulse 95 02/10/2025 1:44 PM EDT Temperature 36.4 C (97.6 F) 02/10/2025 1:44 PM EDT Respiratory Rate 16 02/10/2025 1:44 PM EDT Oxygen Saturation 100% 02/10/2025 1:44 PM EDT Inhaled Oxygen Concentration - - Weight 58.8 kg (129 lb 10.1 oz) 02/10/2025 1:44 PM EDT Height 170.2 cm (5' 7.01 ) 02/10/2025 1:44 PM ED T Body Mass Index 20.3 02/10/2025 1:44 PM EDT documented in this encounter Functional Status [...] Ra christen Cloud documented in this encounter Plan of Treatment Not on file documented as of this encounter Visit Diagnoses Not on filedocumented in this encounter Care Teams Tax Economist Relationship Specialty Start Date End Date Binu Gallegos MD [address] [facility] [place] [address] PCP - General Family Medicine 05/27/11 Nicole Cano APRN.[facility] [address] [place] [address] [place] [address] Nurse Practitioner Hematology/Oncology 11/09/19 documented as of this encounter
--- OUTSIDE RECORDS SUMMARY | 2025-02-10 14:09 | XMS_ITS | Encounter Summary ---
Author Organization [facility] Address [address] [place] [address] Care Team Providers Care High Tension Tester Name Role Phone Unavailable Primary Care Provider Unavailabl e Encounter Details Date Type Department Care Team (Late st Contact Info) Description 11/17/2022 Abstract [facility] [address] [address] Abhi Eugene MD [address] [address] Social History Tobacco Use Types Packs/Day Years Used Date Smoking Tobacco: Never Assessed Sex and Gender Information Value Date Recorded Sex Assigned at Not on file Legal Sex Male 9:50 PM EDT Gender Identity Not on file Sexual Orientation Not on file documented as of this encounter Plan of Treatment Not on file documented as of this encounter Visit Diagnoses Not on filedocumented in this encounter
--- OUTSIDE RECORDS SUMMARY | 2025-02-10 14:09 | XMS_ITS | Encounter Summary ---
Author Organization [facility] Address [address] [place] [address] Care Team Providers Care Rebar Bender Name Role Phone Binu Gallegos MD Primary Care Provider + Nicole Cano APRN.AUTOMOTIVE SPECIALTY TECHNICIAN Unavailable [phone] Source Comments In the event this information is protected by the Federal Confidentiality of Alcohol and Drug AbusePatient Records regulations: The Federal rules restrict any use of the information to criminally investigate or prosecute any alcohol or drug abuse patient.[facility] Encounter Details Date Type Department Care Team (Late st Contact Info) Description 02/02/2025 Clinical Document [facility] [place] [address] Provider, [facility] Social History Tobacco Use Types Packs/Day Years [...] is lower risk 7 11/14/2022 Data from: https://www.neighborhoodatlas.[facility]/. Last address used for calculation [address] 11/14/2022 Sex and Gender Information Value Date [...] of Assessment Author No 05/11/2014 10:07 AM EST Ra christen Saxena * Do you have serious difficulty walking [...] on filedocumented in this encounter Care Teams Rebar Bender Relationship Specialty Start Date End Date Binu Gallegos MD [address] [place] [address] PCP - General Family Medicine 05/27/11 Nicole Cano APRN.AUTOMOTIVE SPECIALTY TECHNICIAN [address] [place] [address] [place] [address] Nurse Practitioner Hematology/Oncology 11/09/19 documented as of this encounter
--- OUTSIDE RECORDS SUMMARY | 2025-02-10 14:09 | XMS_ITS | Encounter Summary ---
Author Organization [facility] Address [address] [place] [address] Care Team Providers Care Director Engineering Name Role Phone Binu Gallegos MD Primary Care Provider + Nicole Cano BREAD AND PASTRY BAKER.HOT MOLDER Unavailable Source Comments In the event this information is protected by the Federal Confidentiality of Alcohol and Drug AbusePatient Records regulations: The Federal rules restrict any use of the information to criminally investigate or prosecute any alcohol or drug abuse patient.[facility] Encounter Details Date Type Department Care Team ([facility] st Contact Info) Description 01/27/2025 Results Follow-Up Hematology/Oncology [address] [place] [address] Nicole Cano APRN.HOT MOLDER [address] [place] [address] Social History Tobacco Use Types Packs/Day Years [...] is lower risk 7 11/14/2022 Data from: https://www.neighborhoodatlas.medicine.[facility]/. Last address used for calculation [address] [...] Ra christen Cloud documented in this encounter Miscellaneous Notes * Telephone Encounter - Gabby Hdez RN - 01/28/2025 8:48 AM EDT Pt informed of HM message, once verified, using 2 patient identifiers. Patient denies any questions, needs or concerns at this time. Appointment verified. Gabby Hdez RN documented in this encounter Plan of Treatment Not on file documented as of this encounter Visit Diagnoses Diagnosis Hypokalemia- Primary Hypopotassemia documented in this encounter Care Teams Director Engineering Relationship Specialty [place] [address] [place] [address] [place] [address] PCP - General Family Medicine 05/27/11 Nicole Cano APRN.HOT MOLDER [address] [place] [address] [place] [address] Nurse Practitioner Hematology/Oncology 11/09/19 documented as of this encounter
--- OUTSIDE RECORDS SUMMARY | 2025-02-10 14:09 | XMS_ITS | Clinical Summary ---
Author Organization [facility] Address [address] [place] [address] Care Team Providers Care Computer Tech Name Role Phone Unavailable Primary Care Provider Unavailabl e Social History Tobacco Use Types Packs/Day Years Used Date Smoking Tobacco: Never Assessed Sex and Gender Information Value Date Recorded Sex Assigned at Not on file Legal Sex Male 9:50 PM EDT Gender Identity Not on file Sexual Orientation Not on file Last Filed Vital Signs Vital Sign Reading Time Taken Comments Blood Pressure 130/72 10/01/2019 12:00 PM EDT Pulse - - Temperature - - Respiratory Rate - - Oxygen Saturation - - Inhaled Oxygen Concentration - - Weight 60.3 kg (133 lb) 10/22/2019 12:00 PM EDT Height 170.2 cm (5' 7 ) 10/22/2019 12:00 PM EDT Body Mass Index 20.83 10/22/2019 12:00 PM EDT Plan of Treatment Not on file
--- OUTSIDE RECORDS SUMMARY | 2025-02-10 14:09 | XMS_ITS ---
Author Organization [facility] Address [address] [place] [address] Care Team Providers Care C D Area Supervisor Name Role Phone Binu Gallegos MD Primary Care Provider + Nicole Cano APRN.WEB UI DEVELOPER Unavailable [phone] Active Problems Problem Noted Date Diagnosed Date History of lymphoma 07/14/2024 Assessment & Plan (07/14/2024 2:06 PM EDT): Assessment: Reports original diagnosis back in 2004. scheduled for surgical intervention. Hypercholesteremia 03/08/2021 Overview (03/08/2021): radiation tx 12/15 Assessment & Plan (04/09/2021 2:03 PM EST): Assessment: stable on medication Hypertension 03/08/2021 Assessment & Plan (07/14/2024 2:05 PM EDT): Assessment: does not take any antihypertensives currently. BP elevated at time of arrival, improved by end of visit. Within acceptable range per anesthesia guidelines. Advised to monitor at home and follow up with PCP. Reports that he used to be on BP medicine in the past. Stable and asymptomatic. Iron deficiency anemia due to chronic blood loss 11/15/2019 Assessment & Plan (07/14/2024 2:06 PM EDT): Assessment: stable. 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 On presentation the patient appeared to have localized disease, but baseline scans showed several areas of lymphadenopathy (most likely benign versus recurrent low-grade lymphoma). Right supraclavicular lymph node biopsy 11/08/2019 was nondiagnostic. The patient received definitive chemoradiation starting 11/15/2019. Concurrent with radiation he received chemotherapy consisting of mitomycin-C 10 mg/m2 day 1+ Xeloda 825 mg meter squared twice daily Friday through Friday. The patient completed treatment 12/16/2019. He had moderate myelosuppression, otherwise tolerated treatment well. Follow-up PET scan 02/02/2020 significantly improved. The patient was reevaluated by colorectal surgery on 07/07/2020. Endoscopy revealed nodularity in the anal canal, and biopsies obtained were negative. At this time the patient has persistent rectal pain, otherwise is clinically stable. However, his most recent follow-up PET scan 08/01/2020 revealed several areas of suspicious lymphadenopathy. 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 Status post first line chemotherapy with CHOP x 8 cycles completed April 2005. PET scan obtained 10/28/2019 revealed scattered areas of lymphadenopathy suspicious for possible lymphoma recurrence. Right supraclavicular lymph node biopsy 11/08/2019 nondiagnostic. Follow-up PET scan 02/02/2020 significantly improved, with no signs of active lymphoma. At this time we will monitor clinically, and intervene accordingly if suspicious signs or symptoms develop. Assessment & Plan (07/04/2020 10:58 AM EST): Assessment: s/p chemotherapy ( 2004) Monitored by HEM/ONC Current Treatment and Therapy Plans No current plan information found. Past Treatment and Therapy Plans NON-CHEMO 2 Plan Name Start Date Discontinue Date Treatment Medications Discontinue Reason Plan Provider Cycles HYDRATION - NS 1000ML IV - ONCE 12/14/2019 01/31/2021 No medications scheduled. Other Zackary Ozuna MD 1 of 1 cycle started ONCOLOGY REGIMEN Plan Name Start Date Discontinue Date Treatment Medications Discontinue Reason Plan Provider Cycles MITOMYCIN 10 D1,29 CAPECITABINE 825 PO BID D1-5,8-12,15-19 ,22-26,29-33,36 -40 - Q35D 0 05/17/2020 mitoMYcin (MUTAMYCIN) Other Leoncio Newman MD 1 of 1 cycle started Resolved Problems Problem Noted Date Diagnosed Date Resolved Date Screening for colorectal cancer 10/14/2022 10/14/2022
--- OUTSIDE RECORDS SUMMARY | 2025-02-10 14:09 | XMS_ITS | Encounter Summary ---
Author Organization [facility] Address [address] [place] [address] Care Team Providers Care Marble Setter Helper Name Role Phone Binu Gallegos MD Primary Care Provider + Leoncio Newman MD Unavailable Unavail able Nicole Cano CONSTRUCTION CONTRACTOR.[employer] TUBE BENDER Unavailable [phone] Source Comments In the event this information is protected by the Federal Confidentiality of Alcohol and Drug AbusePatient Records regulations: The Federal rules restrict any use of the information to criminally investigate or prosecute any alcohol or drug abuse patient.[facility] Encounter Details Date Type Department Care Team (Late st Contact Info) Description 10/07/2022 GI Preprocedure Call Ambulatory Surgery [address] [place] [address] Joseph Rendon Jr., DO [address] [facility] [address] [address] Social History Tobacco Use Types Packs/Day Years Used Date Smoking Tobacco: Former Cigarettes 0 11/09/1974 - 11/09/1982 Passive Smoke Exposure: Past Smokeless Tobacco: Never Alcohol Use Standard Drinks/Week Comments Yes 0 (1 standard drink = 0.6 oz pur e alcohol) Twice a year; maybe one beer PHQ-2 Answer Date Recorded PHQ-2 score 0 05/16/2022 Area Deprivation Index Answer Date Randy rded National Score (1-100), lower number is lower ri sk 86 05/10/2022 State Score (1-10), lower number is lower risk N ot on file 05/10/2022 Data from: https://www.neighborhoodatlas.medicine.[facility]/. Last address used for calculation [address] [facility] 05/10/2022 Sex and Gender Information Value Date Recorded [...] on filedocumented in this encounter Care Teams Marble Setter Helper Relationship Specialty Start Date End Date Binu Gallegos MD [address] [place] [address] PCP - General Family Medicine 05/27/11 Leoncio Newman MD [address] [place] [address] Physician Hematology/Oncology 11/09/19 Nicole Cano APRN.[facility] [address] [place] [address] [place] [address] Nurse Practitioner Hematology/Oncology 11/09/19 documented as of this encounter
--- OUTSIDE RECORDS SUMMARY | 2025-02-10 14:09 | XMS_ITS | Encounter Summary ---
Author Organization [facility] Address [address] [place] [address] Care Team Providers Care Keeper Head Name Role Phone Binu Gallegos MD Primary Care Provider + Nicole Cano APRN.FOOD CART ATTENDANT Unavailable [phone] Source Comments In the event this information is protected by the Federal Confidentiality of Alcohol and Drug AbusePatient Records regulations: The Federal rules restrict any use of the information to criminally investigate or prosecute any alcohol or drug abuse patient.[facility] Encounter Details Date Type Department Care Team (Latest Contact Info) Description 02/01/2025 Travel Social History Tobacco Use Types Packs/Day Years [...] is lower risk 7 11/14/2022 Data from: https://www.neighborhoodatlas.[facility]/. Last address used for calculation [address] [facility] 11/14/2022 Sex and Gender Information Value Date [...] on filedocumented in this encounter Care Teams Keeper Head Relationship Specialty Start Date End Date Binu Gallegos MD [address] [place] [address] PCP - General Family Medicine 05/27/11 Nicole Cano APRN.CNP [address] [place] [address] [place] [address] Nurse Practitioner Hematology/Oncology 11/09/19 documented as of this encounter
--- OUTSIDE RECORDS SUMMARY | 2025-02-10 14:09 | XMS_ITS | Encounter Summary ---
Author Organization [facility] Address [address] [place] [address] Care Team Providers Care Classification Analyst Name Role Phone Binu Gallegos MD Primary Care Provider + Nicole Cano APRN.BRAKESHOE REPAIRER Unavailable [phone] Source Comments In the event this information is protected by the Federal Confidentiality of Alcohol and Drug AbusePatient Records regulations: The Federal rules restrict any use of the information to criminally investigate or prosecute any alcohol or drug abuse patient.[facility] Reason for Visit * Reason Comments Lab Orders Encounter Details Date Type Department Care Team ([facility] Contact Info) Description 01/28/2025 Telephone Hematology/Oncology [address] [place] [address] [place] [address] Jose Luis Adams MD [address] [place] [address] [place] [address] Lab Orders Social History Tobacco Use Types Packs/Day Years [...] is lower risk 7 11/14/2022 Data from: https://www.neighborhoodatlas.medicine.[facility]/. Last address used for calculation [address] 11/14/2022 Sex and Gender Information Value [...] Ra christen Saxena * Do you have difficulty dressing or [...] documented in this encounter Miscellaneous Notes * Addendum Note - Jerry Andrew PA-C - 01/28/2025 11:11 AM EDTAddended by: JERRY ANDREW on: 01/28/2025 11:11 AM Modules accepted: Orders * Telephone Encounter - Pam Mittal MA - 01/28/2025 10:[address] new lab order for appt on 02/01. Pam Mittal MA documented in this encounter Plan of Treatment Pending Results Name Type Priority Associated Diagnoses Date /Time COMPREHENSIVE METABOLIC PANEL Lab Routine Hypokalemia 02/10/2025 1:34 PM EDT Scheduled Orders Name Type Priority Associated Diagnoses Orde r Schedule COMPREHENSIVE METABOLIC PANEL Lab Routine Hypokalemia Expected: 01/28/2025, Expires: 04/29/2025 documented as of this encounter Visit Diagnoses Diagnosis Hypokalemia- Primary Hypopotassemia documented in this encounter Care Teams Classification Analyst Relationship Specialty Start Date End Date Binu Gallegos MD [address] [facility] [place] [place] [address] PCP - General Family Medicine 05/27/11 Nicole Cano APRN.BRAKESHOE REPAIRER [address] [place] [address] [place] [address] Nurse Practitioner Hematology/Oncology 11/09/19 documented as of this encounter
--- OUTSIDE RECORDS SUMMARY | 2025-02-10 14:09 | XMS_ITS | Clinical Summary ---
Author Organization [facility] Address [address] [place] [address] Care Team Providers Care Director Of Physiotherapy Services Name Role Phone Binu Gallegos MD Primary Care Provider + Nicole Cano APRN.DIRECTOR TELECOMMUNICATIONS Unavailable [phone] Allergies No known active allergies Medications simvastatin (ZOCOR) 10 mg tablet Take 10 mg by mouth daily at bedtime. Active polyethylene glycol 3350 (MIRALAX, GLYCOLAX) 17 gram/dose powder Take by mouth as needed. Active aspirin 325 mg tablet Take 325 mg by mouth every 6 hours as needed. Active diphenoxylate-a tropine (LOMOTIL) 2.5-0.025 mg per tabletIndicatio ns:Malignant neoplasm of anus (HCC) Take 1-2 tablets by mouth every 4 hours as needed for diarrhea 50 tablet 1 1 Active acetaminophen (TYLENOL) 325 mg tablet Take 2 tablets by mouth every 6 hours as needed for pain. 1 Active loperamide HCl (ANTI-DIARRHEA ORAL) Take by mouth. Activ e multivit-min/fe rrous fumarate (MULTI VITAMIN ORAL) Take by mouth. Activ e cholecalciferol , vitamin D3, (VITAMIN D3 ORAL) Take by mouth. Activ e potassium chloride ER (KLOR-CON) 20 mEq tablet Take 1 tablet by mouth once daily. 3 tablet 5 Active methylPREDNISol one (MEDROL, AMARJIT,) 4 mg Dose-Pack Take as instructed per package. 21 tablet 5 02/08/20 25 Active Problems Problem Noted Date Diagnosed Date [...] s/p chemotherapy ( 2004) Monitored by HEM/ONC Resolved Problems Problem Noted Date Diagnosed Date Resolved Date Screening for colorectal cancer 10/14/2022 10/14/2022 Encounters Date Type Department Care Team Description 02/10/2025 1:40 PM EDT Visit (SP) Office Hematology/Oncology [address] [place] [address] [place] [address] Jose Luis Adams MD Arrived 02/04/2025 Telephone Cancer Appts [address] [place] [address] Jose Luis Adams MD Film Cath/Echo 02/02/2025 Clinical Document [facility] [place] [address] Provider, Ccf 02/01/2025 9:00 AM EDT Visit (SP) Office Hematology/Oncology [address] [place] [address] Jose Luis Adams MD History of lymphoma (Primary Dx); Lymphadenopathy; Heart failure, unspecified HF chronicity, unspecified heart failure type (HCC); Edema of both legs; Cancer of anal canal (HCC); Iron deficiency anemia due to chronic blood loss; Diffuse large B-cell lymphoma, unspecified body region (HCC); Anemia, unspecified type; Personal history of malignant neoplasm of rectum, rectosigmoid junction, and anus; Shortness of breath; Hypokalemia; rn long term care (current) use of systemic steroids; Encounter for other preprocedural examination 02/01/2025 Travel 01/28/2025 Telephone Hematology/Oncology [address] [place] [address] Jose Luis Adams MD Lab Orders 01/27/2025 10:06 AM EDT - 01/27/2025 11:59 PM EDT Hospital Encounter Radiology Pet CT [address] [facility] [address] Localized enlarged lymph nodes [R59.0] Discharge Disposition: Home 01/27/2025 Results Follow-Up Hematology/Oncology [address] [place] [address] Nicole Cano APRN.DIRECTOR TELECOMMUNICATIONS 01/27/2025 Travel 01/26/2025 Telephone Hematology/Oncology [address] [place] [address] [place] [address] Altagracia Mark RN 01/03/2025 Refill Hematology/Oncology [address] [place] [address] Altagracia Mark, RN from Last 3 Months Immunizations Immunization Administration Dates Next Due COVID-19 original vaccine, a ge 12+ yr, monovalent (Rx Network - PURPLE TOP) 09/14/2020,08/23/2020 influenza (HD-IIV3) vaccine, age 65+ yr, high dose, trivalent, PF (FLUZONE HIGH-DOSE) 02/20/2021,03/01/2020,03/05/2019,2017,02/05/2017,02/02/2016,05/31/2015 influenza (HD-IIV4) vaccine, age 65+ yr, high dose, quadrivalent, PF (FLUZONE HIGH-DOSE) 03/19/2022 pneumococcal conjugate (PCV1 3) vaccine, 13 valent (PREVNAR 13) 05/31/2015 Family History Medical History Relation Comments Asthma Father Hypertension Mother Anesthesia Problems No Family History Relation Status Comments Father Mother Sister Alive Social History Tobacco Use Types Packs/Day Years Used Date Smoking Tobacco: Former Cigarettes 0 11/09/1974 - 11/09/1982 Passive Smoke Exposure: Past Smokeless Tobacco: Never Tobacco Cessation:Counseling Given: Not Answered Alcohol Use Standard Drinks/Week Comments Not Currently 0 (1 standard drink = 0.6 oz pur e alcohol) Twice a year; maybe one beer PHQ-2 Answer Date Recorded PHQ-2 score 0 06/15/2024 Area Deprivation Index Answer Date Randy rded National Score (1-100), lower number is lower ri sk 83 11/14/2022 State Score (1-10), lower number is lower risk 7 11/14/2022 Data from: https://www.neighborhoodatlas.medicine.[facility].edu/. Last address used for calculation [address] [facility] 11/14/2022 Sex and Gender Information [...] Mass Index 20.3 02/10/2025 1:44 PM EDT Plan of Treatment Health Maintenance Due Date Last Done Comments Annual PCP Team Chronic Dise ase Visit 1962 Anxiety Screening 1962 Depression Screening 1962 DTaP,Tdap,Td Vaccine (1 - Tdap) 11/29/1963 CT Colonography 1989 Cologuard (FIT-DNA) 1989 Fecal Occult Blood 1989 Sigmoidoscopy 1989 Shingrix Vaccine (1 of 2) 1994 Medicare Annual Wellness Visit 11/26/2009 Pneumococcal Vaccine: 50+ (2 of 2 - PCV20 or PCV21) 05/31/2016 05/31/2015 RSV Vaccine (1 - 1-dose 75+ series) 11/29/2019 Advance Directive Discussion 04/28/2024 Covid-19 Vaccine (5 - 2024-2 6 season) 2024 03/19/2022, 12/20/2021, 09/14/2020, Additional history exists Influenza Vaccine (#1) 2024 , 02/20/2021, 03/01/2020, Additional history exists Colonoscopy 10/14/2025 10/14/2022, 10/06/2019 Colorectal Cancer Screening 10/14/2025 Diabetes Screening 01/28/2028 01/27/2025, 0 07/08/2024, 05/31/2024, Additional history exists Procedures Procedure Name Priority Date/Time Associated Diagnosis Comments CBC + DIFF Routine 02/10/2025 1:34 PM EDT Lymphadenopathy History of lymphoma Cancer of anal canal (HCC) EXTERNAL LAB 02/02/2025 3:[address] ABD/PEL W IVCON Routine 01/27/2025 10 :58 AM EDT Localized enlarged lymph nodes CT CHEST W IVCON Routine 01/27/2025 10:5 8 AM EDT Localized enlarged lymph nodes COMPREHENSIVE METABOLIC PANEL Routine 01/27/2025 10:08 AM EDT Localized enlarged lymph nodes CBC + DIFF Routine 01/27/2025 10:08 AM EDT Localized enlarged lymph nodes COLONOSCOPY SCREENING Routine 10/14/2022 8:39 AM EDT Encounter for follow-up surveillance of anal cancer from Last 3 Months or Most Recently Relevant to Health Maintenance Results * (ABNORMAL) COMPLETE BLOOD COUNT AND DIFFERENTIAL (02/10/2025 1:34 PM EDT) Only the most recent of2 resultswithin the time period is included. WBC 4.81 3.70 - 11.00 k/uL 02/10/2025 1:44 PM EDT [facility] RBC 3.72(L) 4.20 - 6.00 m/uL 02/10/2025 1:44 PM EDT [facility] Hemoglobin 10.9(L) 13.0 - 17.0 g/dL 02/10/2025 1:44 PM EDT [facility] Hematocrit 33.1(L) 39.0 - 51.0 % 02/10/2025 1:44 PM EDT [facility] MCV 89.0 80.0 - 100.0 fL 02/10/2025 1:44 PM EDT [facility] MCH 29.3 26.0 - 34.0 pg 02/10/2025 1:44 PM EDT [facility] MCHC 32.9 30.5 - 36.0 g/dL 02/10/2025 1:44 PM EDT [facility] RDW-CV 16.4(H) 11.5 - 15.0 % 02/10/2025 1:44 PM EDT [facility] Platelet Count 115(L) 150 - 400 k/uL 02/10/2025 1:44 PM EDT [facility] MPV 10.5 9.0 - 12.7 fL 02/10/2025 1:44 PM EDT [facility] Neutrophils % 70.4 % 02/10/2025 1:44 PM EDT [facility] Abs Neut 3.38 1.45 - 7.50 k/uL 02/10/2025 1:44 PM EDT [facility] Lymphocytes % 18.7 % 02/10/2025 1:44 PM EDT [facility] Abs Lymph 0.90(L) 1.00 - 4.00 k/uL 02/10/2025 1:44 PM EDT [facility] Monocytes % 8.7 % 02/10/2025 1:44 PM EDT [facility] Abs [place] 0.42 <0.87 k/uL 02/10/2025 1:44 PM EDT [facility] Eosinophils % 1.0 % 02/10/2025 1:44 PM EDT [facility] Abs Eosin 0.05 <0.46 k/uL 02/10/2025 1:44 PM EDT [facility] Basophils % 0.2 % 02/10/2025 1:44 PM EDT [facility] Abs Baso <0.03 <0.11 k/uL 02/10/2025 1:44 PM EDT [facility] Immature Granulocytes % 1.0 % 02/10/2025 1:44 PM EDT [facility] Abs Immature Gran 0.05 <0.10 k/uL 02/10/2025 1:44 PM EDT [facility] NRBC 0.0 /100 WBC 02/10/2025 1:44 PM EDT [facility] Absolute nRBC <0.01 <0.01 k/uL 02/10/2025 1:44 PM EDT [facility] Diff Type Auto 02/10/2025 1:44 PM EDT [facility] Blood BLOOD SPECIMEN / Unknown Venipuncture / Unknown 02/10/2025 1:34 PM EDT 02/10/2025 1:35 PM EDT us Leoncio Newman MD LABORATORY Final Re sult [facility] [address] [place] [address] * EXTERNAL LAB (02/02/2025 3:24 PM EDT) External Provider PA-C LABORATORY Final Res ult * CT ABD/PEL W IVCON (01/27/2025 10:58 [...] any questions regarding this interpretation, please call [phone]. If you are unable to reach us at the number above, please feel free to contact [facility]Radiology at [phone]. Narrative 01/27/2025 6:02 PM EDT * * *Final Report* * * DATE OF EXAM: Jan 27 2025 10:58AM [facility] 0530 - CT ABD/PEL W IVCON / [...] images: No additional findings. Procedure Note Provider, [facility] [place] - 01/27/2025 * * *Final Report* * * DATE OF EXAM: Jan 27 2025 10:58AM [facility] 0530 - CT ABD/PEL W IVCON / [...] any questions regarding this interpretation, please call [phone]. If you are unable to reach us at the number above, please feel free to contact [facility]iology at [phone]. us Nicole Cano APRN.DIRECTOR TELECOMMUNICATIONS CT-[facility] Final Re sult * CT CHEST [...] any questions regarding this interpretation, please call [phone]. If you are unable to reach us at the number above, please feel free to contact [facility] at [phone]. Narrative 01/27/2025 5:54 PM EDT * * *Final Report* * * DATE OF EXAM: Jan 27 2025 10:58AM [facility] 0539 - CT CHEST W IVCON / [...] images: No additional findings. Procedure Note Provider, [facility] [place] - 01/27/2025 * * *Final Report* * * DATE OF EXAM: Jan 27 2025 10:58AM [facility] 0539 - CT CHEST W IVCON / [...] any questions regarding this interpretation, please call [phone]. If you are unable to reach us at the number above, please feel free to contact [facility]iology at [phone]. us Nicole Cano APRN.DIRECTOR TELECOMMUNICATIONS CT-[facility] Final Re sult * (ABNORMAL) COMPREHENSIVE METABOLIC PANEL (01/27/2025 10:08 AM EDT) [facility] Protein, Total 7.2 6.3 - 8.0 g/dL 01/27/2025 11:42 AM EDT [facility] Albumin 4.6 3.9 - 4.9 g/dL 01/27/2025 11:42 AM EDT [facility] Calcium, Total 9.9 8.5 - 10.2 mg/dL 01/27/2025 11:42 AM EDT [facility] Bilirubin, Total 0.3 0.2 - 1.3 mg/dL 01/27/2025 11:42 AM [facility] Alkaline Phosphatase 105 38 - 113 U/L 01/27/2025 11:42 AM [facility] AST 20 14 - 40 U/L 01/27/2025 11:42 AM [facility] ALT 13 10 - 54 U/L 01/27/2025 11:42 AM [facility] Glucose 128(H) 74 - 99 mg/dL 01/27/2025 11:42 AM [facility] Comment: The [place] [employer] Association (ADA) provides guidance for cutoff [...] Standards of Medical Care in Diabetes 2016, [place] [employer]. Diabetes Care. 2016.39(Suppl 1). BUN 16 9 - 24 mg/dL 01/27/2025 11:42 AM T [facility] Creatinine 1.13 0.73 - 1.22 mg/dL 01/27/2025 11:42 AM EDT [facility] Sodium 142 136 - 144 mmol/L 01/27/2025 11:42 AM EDT [facility] Potassium 3.3(L) 3.7 - 5.1 mmol/L 01/27/2025 11:42 AM EDT [facility] Chloride 103 98 - 107 mmol/L 01/27/2025 11:42 AM EDT [facility] CO2 25 22 - 30 mmol/L 01/27/2025 11:42 AM EDT [facility] Anion Gap 14 8 - 15 mmol/L 01/27/2025 11:42 AM EDT [facility] Estimated Glomerular Filtration Rate 66 >=60 mL/min/1. 73m 01/27/2025 11:42 AM EDT [facility] Comment:Estimated Glomerular Filtration Rate (eGFR) is [...] 01/27/2025 10:17 AM EDT us Nicole Cano MANAGER RELIABILITY.DIRECTOR TELECOMMUNICATIONS LABORATORY Final Re sult [facility] [address] [place] [address] * COLONOSCOPY SCREENING (10/14/2022 8:39 AM EDT) Anatomical Region Laterality Modality Other 10/14/2022 8:39 AM EDT Narrative 10/14/2022 9:13 AM EDT [facility] Gastrointestinal Endoscopy Patient Name: Jean Pierre Verma Procedure Date: 10/14/2022 8:39 AM Date of : 1945 Admit Type: Outpatient Age: 76 Gender: Male Note Status: Finalized Procedure: Colonoscopy Indications: High risk colon cancer surveillance: Personal history of anal cancer treated with chemo and radiation Providers: Joseph Rendon Jr, DO Patient Profile: This is a 76 year old male. Refer to note in patient chart for documentation of history and physical. Last Colonoscopy: 5 years ago. Referring Physician: Dandy Ndiaye MD (Referring MD) Medicines: Propofol per Anesthesia, Monitored Anesthesia Care Complications: No immediate complications. Requesting Provider: Procedure: Pre-Anesthesia Assessment: - Prior to the procedure, a History and Physical was performed, and patient medications and allergies were reviewed. The patient's tolerance of previous anesthesia was also reviewed. The risks and benefits of the procedure and the sedation options and risks were discussed with the patient. All questions were answered, and informed consent was obtained. Prior Anticoagulants: The patient has taken no anticoagulant or antiplatelet agents except for aspirin. ASA Grade Assessment: III - A patient with severe systemic disease. After reviewing the risks and benefits, the patient was deemed in satisfactory condition to undergo the procedure. After I obtained informed consent, the scope was passed under direct vision. Throughout the procedure, the patient's blood pressure, pulse, and oxygen saturations were monitored continuously. The Colonoscope was introduced through the anus and advanced to the terminal ileum, with identification of the appendiceal orifice and IC valve. The colonoscopy was performed without difficulty. The patient tolerated the procedure well. The quality of the bowel preparation was excellent. The entire colon was well visualized. The terminal ileum, ileocecal valve, appendiceal orifice, and rectum were photographed. Moderate Sedation: MAC anesthesia was administered by the anesthesia team. Findings: The digital rectal exam findings include anal scar with stricture from previous anal cancer but no evidence current anal cancer. Retroflexion was performed and scar noted but no evidence of current anal cancer. Biospies were obtained from the anorectal scar. The terminal ileum appeared normal. A few medium-mouthed diverticula were found in the sigmoid colon. Impression: - Anal stricture found on digital rectal exam. - The examined portion of the ileum was normal. - Diverticulosis in the sigmoid colon. - No specimens collected. Recommendation: - Discharge patient to home. - Resume regular diet. - Continue present medications. - Await pathology results. - Continue anoscopy with colorectal surgery. - Repeat colonoscopy in 3 years for surveillance. - Patient has a contact number available for emergencies. The signs and symptoms of potential delayed complications were discussed with the patient. Return to normal activities tomorrow. Written discharge instructions were provided to the patient. Procedure Code(s): --- Professional --- 35942, Colonoscopy, flexible; diagnostic, including collection of specimen(s) by brushing or washing, when performed (separate procedure) Diagnosis Code(s): --- Professional --- Z12.11, Encounter for screening for malignant neoplasm of colon Z85.038, Personal history of other malignant neoplasm of large intestine K62.4, Stenosis of anus and rectum K57.30, Diverticulosis of large intestine without perforation or abscess without bleeding CPT copyright 2020 [place] [employer]. All rights reserved. The codes documented in this report are preliminary and upon core driller review may be revised to meet current compliance requirements. Attending Participation: I personally performed the entire procedure. Scope In: 8:48:33 AM Scope Out: 9:01:37 AM MD Joseph Solorio Jr, DO 10/14/2022 9:10:58 AM This report has been signed electronically by Joseph Rendon Jr, DO Number of Addenda: 0 Note Initiated On: 10/14/2022 8:39 AM Estimated Blood Loss: Estimated blood loss: none. Dandy Ndiyae MD DIGESTIVE DISEASE Final Result from Last 3 Months or Most Recently Relevant to Health Maintenance Insurance MEDICARE [employer] SUPPLEMENT Care Teams Director Of Physiotherapy Services Relationship Specialty Start Date End Date Binu Gallegos MD [address] [address] PCP - General Family Medicine 05/27/11 Nicole Cano APRN.DIRECTOR TELECOMMUNICATIONS [address] [place] [address] [place] [address] Nurse Practitioner Hematology/Oncology 11/09/19
--- OUTSIDE RECORDS SUMMARY | 2025-02-10 14:09 | XMS_ITS | Encounter Summary ---
Author Organization [facility] Address [address] [place] [address] Care Team Providers Care Cobbler Apprentice Name Role Phone Binu Gallegos MD Primary Care Provider + Nicole Cano APRN.ENROBING MACHINE FEEDER Unavailable [phone] Source Comments In the event this information is protected by the Federal Confidentiality of Alcohol and Drug AbusePatient Records regulations: The Federal rules restrict any use of the information to criminally investigate or prosecute any alcohol or drug abuse patient.[facility] Encounter Details Date Type Department Care Team (Latest Contact Info) Description 01/27/2025 Travel Social History Tobacco Use Types Packs/Day [...] is lower risk 7 11/14/2022 Data from: https://www.neighborhoodatlas.[facility]/. Last address used for calculation [address] [facility] 11/14/2022 Sex and Gender Information [...] on filedocumented in this encounter Care Teams Cobbler Apprentice Relationship Specialty Start Date End Date Binu Gallegos MD [address] [place] [address] PCP - General Family Medicine 05/27/11 Nicole Cano APRN.CNP [address] [place] [address] [place] [address] Nurse Practitioner Hematology/Oncology 11/09/19 documented as of this encounter
--- OUTSIDE RECORDS SUMMARY | 2025-02-10 14:09 | XMS_ITS | Encounter Summary ---
Author Organization [facility] Address [address] [place] [id number] Care Team Providers Care Electromyographic Technician Name Role Phone Binu Gallegos MD Primary Care Provider + Nicole Cano APRN.SEAL DELIVERY VEHICLE OFFICER Unavailable [phone] Source Comments In the event this information is protected by the Federal Confidentiality of Alcohol and Drug AbusePatient Records regulations: The Federal rules restrict any use of the information to criminally investigate or prosecute any alcohol or drug abuse patient.[facility] Reason for Visit * Reason Comments Film Cath/Echo Encounter Details Date Type Department Care Team ([facility] Contact Info) Description 02/04/2025 Telephone Cancer [facility] [address] [place] [address] Jose Luis Adams MD [address] [place] [address] [place] [address] Film Cath/Echo Social History Tobacco Use Types Packs/Day Years [...] is lower risk 7 11/14/2022 Data from: https://www.neighborhoodatlas.medicine.[facility]/. Last address used for calculation [address] [...] Telephone Encounter - Gabby Hdez RN - 02/07/2025 12:15 PM EDT Hilda: please watch for results. Pt will see Elpidio same day Gabby Hdez RN * Telephone Encounter - Celestina Kennedy - 02/07/2025 10:03 AM EDT Patient is scheduled for Echo on 02/10/25 at [facility]. Patient is aware. JOSE ELIAS Aquino * Telephone Encounter - Gabby Hdez, RN - 02/07/2025 8:11 AM EDT Can we see if there is anything sooner within the clinic or another local facility and if pt is agreeable? Gabby Hdez, RN * Telephone Encounter - Celestina Kennedy - 02/04/2025 3:09 PM EDT Jean Pierre Verma JR is calling today regarding Echo order. Patient states he was to schedule this at [facility], but they are booked until March. He is wondering if that is okay. Patient has been identified by name and birthdate. Person calling: self Please return the call at [phone] Celestina Kennedy documented in this encounter Plan of Treatment Not on file documented as of this encounter Visit Diagnoses Not on filedocumented in this encounter Care Teams Electromyographic Technician Relationship Specialty Start Date End Date Binu Gallegos MD [address] [place] [address] PCP - General Family Medicine 05/27/11 Nicole Cano APRN.THANIA [address] [place] [address] [place] [address] Nurse Practitioner Hematology/Oncology 11/09/19 documented as of this encounter
== END 2025-02-10 14:07 | disposition home or self-care (01) ==
LOC: CARD 14:06
PROVIDERS: PCP Family Medicine; Visit Provider Internal Medicine Hematology & Oncology
DX: I50.9 Heart failure, unspecified (principal); R60.0 Localized edema
CPT/HCPCS: 93306; 93356